=== PATIENT | male | born 1950 | race Caucasian/White ===

== ENCOUNTER 2016-07-24 21:19 | Emergency (ER) | payer BC ==
[~2016-07-24] VITALS: Ht 170.2 cm; Wt 104.9 kg
[~2016-07-24 21:19] MED LIST: ASPI81TA28 PO; ATOR10TA82 PO; METF-384 PO; METO50TA16 PO; ZNTT/150 PO
[2016-07-24 21:22] VITALS: TEMP 36.8; Ht 170.2 cm; Wt 104.9 kg
[2016-07-24] MEDS ORDERED: DOXYCYCLINE HYCLATE 100 MG CAP PO ONE (21:45)
--- NOTE | 2016-07-24 21:56 | EMERGENCY ROOM VISIT NOTE ---
ED Visit Note First contact with patient: 21:26 CHIEF COMPLAINT: Tick bite HISTORY OF PRESENT ILLNESS: This 65-year-old male patient presents to the emergency department ambulatory complaining of a tick bite to the right leg, just below the knee. He first noticed the tick approximately 2 hours ago and is unsure how long it was in place. He has attempted to remove the tick at home , and states that most of it came out but he feels there is still a small part left under his skin. They complain of 3/10 pain in the area of the tick bite. The patient denies any redness, swelling or drainage from the area. They deny any rashes, fevers or joint pain. REVIEW OF SYSTEMS: A review of systems was performed with positives and pertinent negatives listed in the history of present illness. All other systems were reviewed and are negative. ALLERGIES: No known drug allergies MEDICATIONS: See med list PMH: Hypertension, diabetes SOCIAL HISTORY: The patient lives locally with his family. Nonsmoker. PHYSICAL EXAM: VITALS: Vitals are noted on the nurse's note and reviewed by myself. Vital signs stable. GENERAL: This is a 65-year-old male, in no acute distress, nondiaphoretic, well- developed well-nourished. SKIN: There is a small area of erythema/ecchymosis over the medial aspect of the right lower leg, just distal to the knee. There is a small black foreign body centrally. There is no surrounding erythema or swelling. There are no rashes. EMERGENCY DEPARTMENT COURSE: The patient was seen and examined as above. The remaining tick parts were removed using forceps. Bacitracin and Band-Aid were applied. Lyme prophylaxis was indicated and the patient was given a one-time dose of 200 mg doxycycline. Conservative care measures were discussed with the patient. The patient was discharged home in good condition. DIAGNOSIS: Tick bite Problem List Medical Problems: (1) Coronary artery disease Status: Chronic (2) Diabetes Status: Chronic (3) Hypertension Status: Chronic Surgical Problems: (1) S/P CABG (coronary artery bypass graft) Status: Resolved Current/Historical Medications Scheduled Atorvastatin (Lipitor), 20 MG PO DAILY Lisinopril (Lisinopril), 5 MG PO DAILY Metformin HCl (Metformin HCl), 500 MG PO BID Metoprolol Tartrate (Lopressor) (Lopressor), 50 MG PO BID Timolol Maleate (Timolol Gfs 0.5% (Generic For Timoptic-Xe)), 1 DROP OPB BID Scheduled PRN Ranitidine (Zantac), 150 MG PO DAILY PRN for INDIGESTION Allergies Coded Allergies: No Known Allergies (Unverified , 09/16/12) Vital Signs Date Time Temp Pulse Resp B/P Pulse Ox O2 Delivery O2 Flow Rate FiO2 07/24/16 22:10 89 18 131/88 99 07/24/16 21:22 36.8 99 18 133/86 96 Room Air Medications Administered Medications (Trade) Dose Ordered Sig/Jimy Route Start Time Stop Time Status Last Admin Dose Admin Doxycycline Hyclate (Vibramycin Cap) 200 mg ONE ONCE PO 07/24/16 21:45 07/24/16 21:46 DC 07/24/16 21:54 200 MG Departure Information Impression Primary Impression: Tick bite Dispostion Home / Self-Care Condition GOOD Referrals Colton Joseph M.D. (PCP) Patient Instructions My [facility] Additional Instructions For pain control, you can use the following [id number] medicines (if >12 yo): - Regular strength (325mg/tab) Tylenol (acetaminophen) 2 tabs every 4-6 hours as needed. Do not exceed 12 tablets in a 24 hour period. Avoid taking more than 4 grams (4000 mg) of Tylenol per day. This includes any other sources of acetaminophen you may take on a regular basis. - Regular strength (200 mg/tab) Advil (ibuprofen) 1-2 tabs every 4-6 hours as needed. Do not exceed a dose of 3200 mg per day. Proper wound care is essential for adequate wound healing and infection prevention. You can shower and clean the wound with soap and water. Do not scour over the wound, pat dry with a towel. Do not submerse the wound (i.e. bathe or dish wash) until the wound has fully healed. You can use an antibiotic ointment with a dressing over the wound for the next 3-4 days. After this time you may leave the wound dry and open to the air. Follow-up with the primary care provider or return here for any target-like rashes, joint pain, fevers or other new/concerning symptoms.
[2016-07-24] MEDS ORDERED: GLC500 PO (22:08)
[2016-07-24] MEDS ORDERED: LSN5 PO (22:08)
[2016-07-24] MEDS ORDERED: ATOR-22 PO (22:08)
[2016-07-24] MEDS ORDERED: TMPXEOPS OPB (22:08)
[2016-07-24 22:10] VITALS: BP 131/88; PULSE 89; O2SAT 99
== END 2016-07-24 22:01 | disposition home or self-care (01) ==
LOC: C.EDB 21:19 → C.EDD 22:01
DX: S80.861A Insect bite (nonvenomous), right lower leg, initial encounter (principal); W57.XXXA Bitten or stung by nonvenomous insect and other nonvenomous arthropods, initial encounter; I25.10 Atherosclerotic heart disease of native coronary artery without angina pectoris; E11.9 Type 2 diabetes mellitus without complications; I10 Essential (primary) hypertension; Z95.1 Presence of aortocoronary bypass graft; Z79.84 Long term (current) use of oral hypoglycemic drugs; Z79.899 Other long term (current) drug therapy

== ENCOUNTER 2017-08-01 17:08 | Emergency (ER) | payer BC ==
[~2017-08-01] VITALS: Ht 170.2 cm; Wt 105.0 kg
[~2017-08-01 17:08] MED LIST changes: -ASPI81TA28 PO; +ATOR-22 PO; -ATOR10TA82 PO; +GLC500 PO; +LSN5 PO; -METF-384 PO; +RANI150T85 PO; +TMPXEOPS OPB; -ZNTT/150 PO
[2017-08-01 17:29] VITALS: TEMP 36.8; Ht 170.2 cm; Wt 105.0 kg
[2017-08-01] MEDS ORDERED: FENTANYL CITRATE INJ 50 MCG/1 ML 2 ML VIAL IV STA (17:56)
[2017-08-01] MEDS ORDERED: SODIUM CHLORIDE 0.9% 1000ML 1,000 ML IV STA (17:56)
[2017-08-01] MEDS ORDERED: PIOG1TAB23 PO (18:00)
[2017-08-01] MEDS ORDERED: CZR25 PO (18:00)
[2017-08-01 18:27] VITALS: O2SAT 97
[2017-08-01] MEDS ORDERED: OPTIRAY 320 IV PRN (18:30)
--- NOTE | 2017-08-01 18:35 | EMERGENCY ROOM VISIT NOTE ---
History Report prepared by Tyron: Nicole Deleon Under the Supervision of: Dr. Tee Daniel M.D. First contact with patient: 17:40 Chief Complaint: FALL Stated Complaint: FALL/ R LEG & BACK PAIN/SOB History of Present Illness The patient is a 66 year old male who presents to the Emergency Room with complaints of an episode of a fall occurring just prior to arrival. The patient reports he was was carrying shingles up a ladder when the ladder fell sideways and he fell off of it. He states he hit his feet on the ground first before he fell onto his back and rolled onto his ride. The patient reports right knee pain. He denies any hip pain, neck pain, back pain or shoulder pain. The patient does not believe he hit his head or lost consciousness. He also does not believe he is on any blood thinners. Source of History: patient Onset: just prior to arrival Position: other (generalized) Quality: other (fall) Timing: other (episode) Associated Symptoms: No LOC, No neck pain, No back pain Review of Systems See HPI for pertinent positives and negatives. A total of ten systems were reviewed and were otherwise negative. Past Medical & Surgical Medical Problems: (1) Coronary artery disease (2) Diabetes (3) Hypertension Surgical Problems: (1) S/P CABG (coronary artery bypass graft) Family History Patient reports no known family medical history. Social History Smoking Status: Never Smoker Alcohol Use: none Drug Use: none Marital Status: Housing Status: lives with significant other Occupation Status: unemployed Current/Historical Medications Scheduled Atorvastatin (Lipitor), 20 MG PO DAILY Lisinopril (Lisinopril), 5 MG PO DAILY Losartan Potassium (Losartan Potassium), 25 MG PO DAILY Metformin HCl (Metformin HCl), 500 MG PO BID Metoprolol Tartrate (Lopressor) (Lopressor), 50 MG PO BID Pioglitazone Hcl (Pioglitazone Hcl), 30 MG PO DAILY Timolol Maleate (Timolol Gfs 0.5% (Generic For Timoptic-Xe)), 1 DROP OPB BID Scheduled PRN Lidocaine (Lidocaine), 1 PATCH TD DAILY PRN for Pain Oxycodone Ir (Roxicodone Ir), 1-2 TAB PO Q4H PRN for Pain Ranitidine (Zantac), 150 MG PO DAILY PRN for INDIGESTION Allergies Coded Allergies: No Known Allergies (Unverified , 5//18) Physical Exam Vital Signs Date Time Temp Pulse Resp B/P (MAP) Pulse Ox O2 Delivery O2 Flow Rate FiO2 08/02/17 01:02 102 18 105/56 98 08/02/17 00:20 105 18 108/61 93 Room Air 08/01/17 23:19 100 08/01/17 22:46 100 20 123/77 97 Room Air 08/01/17 21:30 99 14 93 Room Air 08/01/17 21:00 101 18 130/83 96 Room Air 08/01/17 20:30 102 15 96 Room Air 08/01/17 20:05 90 15 125/60 97 Room Air 08/01/17 18:53 74 08/01/17 18:39 79 18 146/76 97 Room Air 08/01/17 18:27 97 Room Air 08/01/17 17:29 36.8 73 18 133/76 95 Room Air Physical Exam GENERAL: Awake, alert, uncomfortable-appearing, in no distress HENT: Normocephalic, atraumatic. Oropharynx unremarkable. Dry MM. EYES: Normal conjunctiva. Sclera non-icteric. NECK: Supple. No nuchal rigidity. FROM. No JVD. RESPIRATORY: Clear to auscultation. CARDIAC: Regular rate, normal rhythm. Extremities warm and well perfused. Pulses equal. ABDOMEN: Soft, non-distended. No tenderness to palpation. No rebound or guarding. No masses. RECTAL: Deferred. MUSCULOSKELETAL: Mild tenderness in mid T-spine laterally, no midline tenderness in CTL spine, no stepoffs. Pain with range of motion of right knee with questionable deformity and mild swelling. Distal pulses intact with triphasic pedal pulses. Chest examination reveals no tenderness. No joint edema. LOWER EXTREMITIES: Calves are equal size bilaterally and non-tender. No edema. No discoloration. NEURO: Normal sensorium. No sensory or motor deficits noted. SKIN: No rash or jaundice noted. Medical Decision & Procedures ER Provider Diagnostic Interpretation: Radiology results as stated below per my review and radiologist interpretation: R LOWER EXTREMITY WITHOUT FINDINGS: Electrotyper Helper topogram: Unremarkable. Redemonstration of the comminuted intra-articular fracture of the tibial plateau. Fracture planes violating both the medial and lateral articular surfaces of the tibial plateau. A prominent horizontal metaphyseal component is evidence, bilaterally both the medial and lateral cortex of the tibial metaphysis. There is severe depression in the lateral plateau with approximately 1 cm of Central cortical depression. No significant cortical step-off at the oblique sagittal fracture plane through the medial articular surface. The fibular head is also comminuted. The proximal tibiofibular articulation is disrupted. Another prominent fracture plane extends coronally and separates the posterior portion of the tibial plateau. There is slight apex anterior angulation of this fracture fragment with impaction distally and significant cortical step-off of nearly 1 cm (series 301 image 50). Knee joint effusion with a lipoma hemarthrosis. Suspected disruption of the insertion of the biceps femoris tendon and fibular collateral ligament. Suspected disruption of the popliteus tendon. Evaluation of soft tissues would be better assessed with MR. IMPRESSION: Comminuted Schatzker type fracture with significant cortical step-off and deformity is as detailed above. Violation of both the medial and lateral articular surfaces of the tibia. Severe posterior lateral corner disruption. Electronically signed by: Reji López M.D. ABD/PELVIS IV CONTRAST ONLY CLINICAL HISTORY: 66 years-old Male presenting with pain fall, fall from a height of 8 feet off a ladder. TECHNIQUE: Multidetector CT of the abdomen and pelvis was performed after the administration of intravenous contrast. IV contrast: 91 mL of Optiray 320. A dose lowering technique was used consistent with the principles of ALARA (as low as reasonably achievable). COMPARISON: None. CT DOSE (mGy.cm): The estimated cumulative dose is 4625.[address] scans. FINDINGS: Electrotyper Helper topogram: Median sternotomy wires. Lung bases: Minimal basilar opacities, likely atelectasis. Normal heart size. Coronary artery and aortic valve calcification. No pericardial or pleural effusion. Liver: Normal morphology. No liver lesion. Patent hepatic vasculature. Biliary: No intrahepatic or extrahepatic biliary ductal dilatation. Gallbladder contains gallstones. Pancreas: Normal. Spleen: Normal. Adrenal glands: Normal. Kidneys and ureters: Bilateral nephrolithiasis, punctate on the right and more prominent on the left measuring 8 mm. No hydronephrosis. An anteriorly oriented left renal pelvis. Normal renal parenchyma apart from a well-defined hypodensity in the right kidney, likely cyst. Ureters normal. Bladder: Circumferential bladder wall thickening. Pelvic organs: Prostate enlargement likely secondary to benign prostatic hyperplasia. Bowel: Normal appendix. No bowel obstruction. Peritoneal cavity: No free fluid or intraperitoneal gas. Lymph nodes: No enlarged lymph nodes in the abdomen or pelvis. Vasculature: Atherosclerosis of the normal caliber abdominal aorta. IVC patent. Abdominal wall: Bilateral gynecomastia. No focal infiltration to suggest contusion. Musculoskeletal: Degenerative changes of the spine. Degenerative changes of the sacroiliac joints. 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 No acute osseous injury. IMPRESSION: 1. No acute intra-abdominal injury. 2. Cholelithiasis. 3. Bilateral nephrolithiasis. 4. Chronic bladder outlet obstruction secondary to prostatomegaly. 5. Bilateral gynecomastia. Electronically signed by: Reji López M.D. CERVICAL SPINE W/O CLINICAL HISTORY: 66 years-old Male presenting with EVALUATE FOR TRAUMA/INJURY, fell 8 feet off a ladder. TECHNIQUE: Multidetector CT of the cervical spine was performed without the use of intravenous contrast. IV contrast: None. A dose lowering technique was used consistent with the principles of ALARA (as low as reasonably achievable). COMPARISON: None. CT DOSE (mGy.cm): The estimated cumulative dose is 4625.[address] scans. FINDINGS: Electrotyper Helper topogram: Median sternotomy wires. Normal cervical lordosis. Mild vertebral body height loss of C5. Remaining vertebral bodies demonstrate normal height and alignment. Intervertebral disc height loss at C5-6. Disc osteophyte complexes evident at C4-5 through C6-7. No acute fracture or acute subluxation. Degenerative or posttraumatic ossification within the nuchal ligament. No significant osseous spinal canal. Osseous neural foraminal narrowing evident on the right at C5-6. Skull base intact. Lung apices clear. Paraspinal soft tissues within normal limits allowing for noncontrast technique. IMPRESSION: 1. No acute osseous injury of the cervical spine. 2. Degenerative related height loss of C5. 3. Multilevel degenerative disease. Electronically signed by: Reji López M.D. CT (CHEST) THORAX WITH CLINICAL HISTORY: 66 years-old Male presenting with Trauma, fell 8 feet off a ladder. TECHNIQUE: Multidetector CT imaging of the chest was performed after the administration of intravenous contrast. IV contrast: 91 mL of Optiray 320. A dose lowering technique was used consistent with the principles of ALARA (as low as reasonably achievable). COMPARISON: None. CT DOSE (mGy.cm): The estimated cumulative dose is 4625.44. FINDINGS: Electrotyper Helper topogram: Median sternotomy wires. On soft tissue windows, normal thyroid. Bilateral gynecomastia. No axillary, supraclavicular, hilar, or mediastinal lymphadenopathy. Atherosclerosis of the aorta. Mild multichamber enlargement of the heart. Coronary artery calcification. Postsurgical changes of coronary artery bypass grafting. No pericardial or pleural effusion. Cholelithiasis. On lung windows, minimal dependent changes likely atelectasis. Mosaic attenuation suggest small airways disease. No other focal nodule or infiltrate. Airways patent. On bone windows, degenerative changes of the spine. IMPRESSION: 1. No acute intrathoracic injury. 2. Postsurgical changes of coronary artery bypass grafting. 3. Mild cardiomegaly. 4. Cholelithiasis. Electronically signed by: Reji López M.D. HEAD WITHOUT CONTRAST (CT) CLINICAL HISTORY: 66 years-old Male presenting with EVALUATE FOR TRAUMA/INJURY fall from a height of 8 feet from a ladder. TECHNIQUE: Multidetector CT imaging of the head was performed without the use of intravenous contrast. IV contrast: None. A dose lowering technique was used consistent with the principles of ALARA (as low as reasonably achievable). COMPARISON: None. CT DOSE (mGy.cm): The estimated cumulative dose is 4625.44 mGy.cm. FINDINGS: Electrotyper Helper topogram: Unremarkable. Ventricles and sulci normal in size. Brain parenchyma normal in appearance with preserved newell-white differentiation. No mass effect or midline shift. No hemorrhage or acute territorial infarct. No extra-axial fluid collection. Paranasal sinuses and mastoid air cells clear. Calvarium intact. IMPRESSION: 1. No acute intracranial abnormality. Electronically signed by: Reji López M.D. LUMBAR SPINE WITHOUT CLINICAL HISTORY: 66 years-old Male presenting with pain fall. TECHNIQUE: Multidetector CT of the lumbar spine was performed without the use of intravenous contrast. IV contrast: None. A dose lowering technique was used consistent with the principles of ALARA (as low as reasonably achievable). COMPARISON: Plain radiographs of the lumbar spine from 05/22/2015. CT DOSE (mGy.cm): The estimated cumulative dose is 4625.44. FINDINGS: Electrotyper Helper topogram: Median sternotomy wires. Normal lumbar lordosis. Vertebral bodies maintain normal height and alignment. Intervertebral disc heights preserved. Anterior osteophytosis noted most pronounced at L4-5. Disc bulge suggested at several levels but most prominently at L5-S1. Facet arthropathy also noted in the lower lumbar spine. No significant osseous spinal canal and neural foraminal narrowing. No acute fracture or acute subluxation. Acute fractures of the right transverse processes of L2-L3. Visualized portion of the sacrum intact. Paraspinal musculature normal. Remaining soft tissues remarkable for atherosclerosis and bilateral nephrolithiasis. IMPRESSION: 1. Acute fractures of the right transverse processes of L2 and L3. Notably, this is different than reported on the CT abdomen and pelvis. Please rely on this report for findings in the lumbar spine. 2. No other acute osseous injury. 3. Multilevel degenerative changes. Electronically signed by: Reji López M.D. THORACIC SPINE WITHOUT CLINICAL HISTORY: 66 years-old Male presenting with pain fall, fall from ladder from 8 feet, mid back pain. TECHNIQUE: Multidetector CT of the thoracic spine was performed 1 IV contrast: None. A dose lowering technique was used consistent with the principles of ALARA (as low as reasonably achievable). COMPARISON: None. CT DOSE (mGy.cm): The estimated cumulative dose is 4625.[address] scans. FINDINGS: Electrotyper Helper topogram: Unremarkable. Normal thoracic kyphosis. Vertebral bodies maintain normal height and alignment. Intervertebral disc heights maintained. Flowing anterior osteophytosis at every level. No osseous neural foraminal or spinal canal narrowing. No compression deformity. However, there is an apparent breakage of anterior osteophytes at the superior endplate of T9. A fracture plane may be present in the anterior aspect of the T9 vertebral body which allows the superior endplate. No fracture plane is identified in the posterior aspect of the vertebral body or posterior elements. No subluxation. Normal alignment of the facet joints. Paraspinal musculature within normal limits. Atelectasis noted in the lungs. IMPRESSION: Findings consistent with acute fracture of the T9 vertebral body most evident by fracture of the anterior osteophytosis at the level of the superior endplate of T9. No extension of the fracture into the posterior aspect of the T9 vertebral body or the posterior elements. No subluxation. Electronically signed by: Reji López M.D. R ANKLE MIN 3 VIEWS ROUTINE CLINICAL HISTORY: 66 years-old Male presenting with pain fall from ladder. TECHNIQUE: Frontal, oblique, and lateral views of the right ankle were obtained. COMPARISON: None. FINDINGS: Ankle mortise intact. Prominent enthesophyte at the insertion of the Achilles tendon and origin of the plantar fascia. No acute fracture or malalignment. No advanced degenerative change. No radiographic soft tissue abnormality. IMPRESSION: No acute osseous injury. Electronically signed by: Reji López M.D. CHEST ONE VIEW PORTABLE CLINICAL HISTORY: 66 years-old Male presenting with EVALUATE FOR TRAUMA/INJURY. TECHNIQUE: Portable supine AP view of the chest was obtained. COMPARISON: 02/04/2017. FINDINGS: Median sternotomy wires. Atherosclerosis of aortic arch. Cardiac silhouette mildly enlarged. Pulmonary vascular prominence. Mildly low lung volumes. No focal opacity. No large effusion or pneumothorax. Osseous structures normal. Upper abdomen normal. IMPRESSION: 1. Cardiomegaly with volume overload. The appearance may be due to supine technique. No heath pulmonary edema. 2. Mildly low lung volumes. Electronically signed by: Reji López M.D. R FEMUR 2 VIEWS ROUTINE CLINICAL HISTORY: 66 years-old Male presenting with pain fall from ladder. TECHNIQUE: Frontal and lateral views of the right femur were obtained. COMPARISON: None. FINDINGS: Partially visualized tibial plateau fracture. The right hip joint is congruent. The right femur is intact. No acute fracture or malalignment. No advanced degenerative change. Knee joint effusion evident. Visualized portion of the bony pelvis intact. IMPRESSION: 1. No acute osseous injury of the right femur. 2. Tibial plateau fracture. 3. Knee joint effusion. Electronically signed by: Ankit Severino FOOT MIN 3 VIEWS ROUTINE CLINICAL HISTORY: 66 years-old Male presenting with pain fall from ladder. TECHNIQUE: Frontal, oblique, and lateral views of the right foot were obtained. COMPARISON: None. FINDINGS: Mild osteophytosis at the first metatarsophalangeal joint with preservation of joint space. Enthesophyte at the insertion of the Achilles tendon and origin of the plantar fascia. No acute fracture or malalignment. No advanced degenerative change. No radiographic soft tissue abnormality. IMPRESSION: No acute osseous injury. Electronically signed by: Ankit Severino KNEE 1 OR 2 VIEWS ROUTINE CLINICAL HISTORY: 66 years-old Male presenting with pain fall from ladder. TECHNIQUE: Frontal and lateral views the right knee were obtained. COMPARISON: None. FINDINGS: Comminuted mildly depressed fracture of the lateral tibial plateau that extends to the lateral and medial cortices of the tibial metaphysis. There is resultant widening of the lateral joint space of the knee secondary to impaction. Significant cortical step-off. Minimal apex anterior angulation of the metaphyseal fracture plane. Significant joint effusion. Enthesophytes at the insertion of the quadriceps tendon and origin and insertion of the patellar tendon. No advanced degenerative changes. IMPRESSION: 1. Comminuted Schatzker type fracture pattern with significant depression and cortical up off of the lateral plateau. 2. Joint effusion. Electronically signed by: Reji López M.D. R TIBIA/FIBULA 2 VIEWS ROUTINE FINDINGS: The knee is incompletely included within the [id number]. Please see separately dictated radiographs of the knee. The remainder of the tibia and fibula are normal. No acute fracture or malalignment. No advanced degenerative change. No radiographic soft tissue abnormality. IMPRESSION: No acute osseous injury. Please see separately dictated radiographs of the right knee. Electronically signed by: Reji López M.D. Laboratory Results 08/01/17 18:47 Red Blood Count 4.84, Mean Corpuscular Volume 90.5, Mean Corpuscular Hemoglobin 30.8, Mean Corpuscular Hemoglobin Concent 34.0, Mean Platelet Volume 10.1, Neutrophils (%) (Auto) 76.3, Lymphocytes (%) (Auto) 17.2, Monocytes (%) (Auto) 5.3, Eosinophils (%) (Auto) 0.5, Basophils (%) (Auto) 0.3, Neutrophils # (Auto) 8.81, Lymphocytes # (Auto) 1.98, Monocytes # (Auto) 0.61, Eosinophils # (Auto) 0.06, Basophils # (Auto) 0.03 08/01/17 18:47 Test 08/01/17 18:47 08/01/17 18:56 08/01/17 20:55 White Blood Count 11.54 K/uL (4.8-10.8) Red Blood Count 4.84 M/uL (4.7-6.1) Hemoglobin 14.9 g/dL (14.0-18.0) Hematocrit 43.8 % (42-52) Mean Corpuscular Volume 90.5 fL (80-100) Mean Corpuscular Hemoglobin 30.8 pg (25-34) Mean Corpuscular Hemoglobin Concent 34.0 g/dl (32-36) Platelet Count 188 K/uL (130-400) Mean Platelet Volume 10.1 fL (7.4-10.4) Neutrophils (%) (Auto) 76.3 % Lymphocytes (%) (Auto) 17.2 % Monocytes (%) (Auto) 5.3 % Eosinophils (%) (Auto) 0.5 % Basophils (%) (Auto) 0.3 % Neutrophils # (Auto) 8.81 K/uL (1.4-6.5) Lymphocytes # (Auto) 1.98 K/uL (1.2-3.4) Monocytes # (Auto) 0.61 K/uL (0.11-0.59) Eosinophils # (Auto) 0.06 K/uL (0-0.5) Basophils # (Auto) 0.03 K/uL (0-0.2) RDW Standard Deviation 43.2 fL (36.4-46.3) RDW Coefficient of Variation 13.1 % (11.5-14.5) Immature Granulocyte % (Auto) 0.4 % Immature Granulocyte # (Auto) 0.05 K/uL (0.00-0.02) Prothrombin Time 10.9 SECONDS (9.0-12.0) Prothromb Time International Ratio 1.0 (0.9-1.1) Est Creatinine Clear Calc Drug Dose 73.6 ml/min Estimated GFR () 77.2 Estimated GFR (Non- 66.6 BUN/Creatinine Ratio 17.6 (10-20) Calcium Level 8.5 mg/dl (8.5-10.1) Total Bilirubin 0.9 mg/dl (0.2-1) Direct Bilirubin 0.2 mg/dl (0-0.2) Aspartate Amino Transf (AST/SGOT) 29 U/L (15-37) Alanine Aminotransferase (ALT/SGPT) 32 U/L (12-78) Alkaline Phosphatase 56 U/L (45-117) Total Creatine Kinase 226 U/L (39-308) Troponin I < 0.015 ng/ml (0-0.045) Total Protein 7.5 gm/dl (6.4-8.2) Albumin 3.8 gm/dl (3.4-5.0) Lipase 214 U/L (73-393) Ethyl Alcohol mg/dL < 3.0 mg/dl (0-3) Bedside Hemoglobin 15.0 g/dl (14.0-18.0) Bedside Hematocrit 44 % (42-52) Bedside Sodium 142 mEq/L (135-144) Bedside Potassium 4.3 mEq/L (3.3-5.0) Bedside Chloride 104 mEq/L (101-112) Bedside Total CO2 27 mEq/l (24-31) Anion Gap 17.0 mmol/L (16-25) Bedside Blood Urea Nitrogen 22 mg/dl (7-18) Bedside Creatinine 1.2 mg/dl (0.6-1.3) Bedside Glucose (other) 135 mg/dl (70-99) Bedside Ionized Calcium (Penny) 1.11 mmol/l (1.12-1.32) Urine Color YELLOW Urine Appearance CLEAR (CLEAR) Urine pH 5.0 (4.5-7.5) Urine Specific [place] > 1.045 (1.000-1.030) Urine Protein NEG (NEG) Urine Glucose (UA) NEG (NEG) Urine Ketones TRACE (NEG) Urine Occult Blood 3+ (NEG) Urine Nitrite NEG (NEG) Urine Bilirubin NEG (NEG) Urine Urobilinogen NEG (NEG) Urine Leukocyte Esterase NEG (NEG) Urine WBC (Auto) 1-5 /hpf (0-5) Urine RBC (Auto) 10-30 /hpf (0-4) Urine Hyaline Casts (Auto) 1-5 /lpf (0-5) Urine Epithelial Cells (Auto) 0-5 /lpf (0-5) Urine Bacteria (Auto) NEG (NEG) Laboratory results reviewed by me Medications Administered Medications (Trade) Dose Ordered Sig/Jimy Route Start Time Stop Time Status Last Admin Dose Admin Sodium Chloride 1,000 ml @ 999 mls/hr Q1H1M STAT IV 08/01/17 17:56 08/01/17 18:56 DC 08/01/17 19:21 999 MLS/HR Fentanyl Citrate (Fentanyl Inj) 50 mcg NOW STAT IV 08/01/17 17:56 08/01/17 18:00 DC 08/01/17 20:04 50 MCG Morphine Sulfate (MoRPHine SULFATE INJ) 8 mg NOW STAT IV 08/01/17 21:03 08/01/17 21:04 DC 08/01/17 21:11 8 MG Sodium Chloride 500 ml @ 999 mls/hr Q31M STAT IV 08/02/17 00:07 08/02/17 00:37 DC 08/02/17 00:10 999 MLS/HR Ondansetron HCl (Zofran Inj) 4 mg NOW STAT IV 08/02/17 00:07 08/02/17 00:08 DC 08/02/17 00:20 4 MG ECG Per My Interpretation Indication: other (trauma) Rate (beats per minute): 70 Rhythm: normal sinus Findings: RBBB, no acute ischemic change, left axis deviation ED Course 1741: The patient was evaluated in room B3A. A complete history and physical exam was performed. 2099: I discussed the patient with Dr. Gutiérrez-Orthopedics - He agrees with treatment plan and will follow up with the patient on Thursday. He recommends a knee immobilizer. 2131: I reevaluated the patient. Discussed results and discharge instructions: He verbalized understanding and agreement. The patient is ready for discharge. Medical Decision I reviewed the patient's past medical history, medications, and the nursing notes as described above. Differential diagnosis: Etiologies such as fracture, dislocation, intra-abdominal, pneumothorax, intrathoracic , intracranial, neurologic, as well as other traumatic pathologies were entertained. The patient is a 66-year-old gentleman who presents emergency department with right knee pain after having a fall off of an 8 foot ladder landing on his feet and then onto his back per hpi. Denies any head strike, LOC. On arrival the patient is uncomfortable but no acute distress, afebrile stable vital signs. On exam the patient has mild left paraspinal thoracic pain and otherwise no CT L spine tenderness or step-offs. Mild tenderness of the right knee with mild swelling and limited range of motion secondary to pain. He has full range of motion at the hips bilaterally without discomfort. Distal PMS intact with triphasic pedal pulses on Doppler. Labs unremarkable. CT of head, chest, abdomen/pelvis, CT L-spine demonstrate an acute T9 vertebral body fracture at the level of the superior endplate with no involvement of posterior elements. Additional with right L2 and L3 transverse process fractures. Otherwise, plain films demonstrate "Comminuted Schatzker type fracture pattern with significant depression and cortical up off of the lateral plateau." Case was discussed with Dr. Gutiérrez who agrees with plan for knee immobilization and CT for surgical planning. The patient will follow-up on Thursday for further evaluation and surgical coordination. Of note, CT completed further characterizing the patient's tibial plateau fracture, knee immobilizer placed, however when attempted to walk the patient did experience near syncope likely related to the patient's morphine administration in the setting of decreased oral intake. Patient was given IVF bolus and zofran with resolution of sx. Findings and plan for follow-up reviewed with patient. Patient agreeable and d/c'd per discharge instructions. Medication Reconcilliation Current Medication List: was personally reviewed by me Blood Pressure Screening Patient's blood pressure: Normal blood pressure Consults Time Called: 2037 Consulting Physician: Dr. Gutiérrez-Orthopedics Returned Call: [phone] I discussed the patient with Dr. Gutiérrez-Orthopedics - He agrees with treatment plan and will follow up with the patient on Thursday. He recommends a knee immobilizer. Impression Primary Impression: Tibial plateau fracture, right Additional Impressions: T9 vertebral fracture Multiple transverse process fractures Scribe Attestation The scribe's documentation has been prepared under my direction and personally reviewed by me in its entirety. I confirm that the note above accurately reflects all work, treatment, procedures, and medical decision making performed by me. Departure Information Dispostion Home / Self-Care Prescriptions Lidocaine (Lidocaine) 1 Patch Tdsy 1 PATCH TD DAILY Y for Pain, #10 PATCH Prov: Tee Daniel M.D. 08/01/17 Oxycodone Ir (Roxicodone Ir) 5 Mg Tab 1-2 TAB PO Q4H Y for Pain, #15 TAB Prov: Tee Daniel M.D. 08/01/17 Referrals Colton Joseph M.D. (PCP) Fletcher Gutiérrez D.O. Michael Schrader, DO Forms HOME CARE DOCUMENTATION FORM, IMPORTANT VISIT INFORMATION Patient Instructions ED Fx Comp Vertebral, ED Fx Transverse Process, ED Immobilizer Knee, My [facility], Tibial Plafond Fracture Additional Instructions Please follow up with your orthopedics, Dr. Gutiérrez, on Thursday for re-evaluation and surgical planning for your knee fracture. You should also follow up with Dr. Schrader, orthopedic-spine, for re-evaluation regarding your vertebral fractures. You are found to have a right knee fracture will require surgery as well as minor fractures of her spine including your T9 vertebral body and the right transverse process fractures of L2 and L3. Otherwise, your exam, lab results, and CT scans did not show signs of an emergent condition at this time. Use your knee immobilizer and remain nonweightbearing until reevaluated. Acetaminophen for pain and fevers as needed. Oxycodone for breakthrough pain as directed. Lidoderm patch for additional pain relief as needed. Drink plenty of fluids to ensure hydration. Return to the emergency department for worsening symptoms as described in the accompanying instructions. Problem Qualifiers
[2017-08-01 19:10] LABS: ISTAT CREATININE 1.2 mg/dl (0.6-1.3); ISTAT IONIZED CALCIUM 1.11 mmol/l (1.12-1.32); ISTAT POTASSIUM 4.3 mEq/L (3.3-5.0)
[2017-08-01 19:11] LABS: BASO % 0.3 %; BASO ABS # 0.03 K/uL (0-0.2); EOS % 0.5 %; EOS ABS # 0.06 K/uL (0-0.5); HEMATOCRIT 43.8 % (42-52); HEMOGLOBIN 14.9 g/dL (14.0-18.0); IG# 0.05 K/uL (0.00-0.02); LYMPH % 17.2 %; LYMPH ABS # 1.98 K/uL (1.2-3.4); MEAN CELL VOLUME 90.5 fL (80-100); MEAN CORPUSCULAR HEMOGLOBIN 30.8 pg (25-34); MEAN PLATELET VOLUME 10.1 fL (7.4-10.4); MONO % 5.3 %; MONO ABS # 0.61 K/uL (0.11-0.59); NEUT % 76.3 %; NEUT ABS # 8.81 K/uL (1.4-6.5); PLATELET COUNT 188 K/uL (130-400); RED CELL DISTRIBUTION WIDTH CV 13.1 % (11.5-14.5); RED CELL DISTRIBUTION WIDTH SD 43.2 fL (36.4-46.3); WHITE BLOOD COUNT 11.54 K/uL (4.8-10.8)
[2017-08-01 19:28] LABS: ALBUMIN 3.8 gm/dl (3.4-5.0); ALT/SGPT 32 U/L (12-78); AST/SGOT 29 U/L (15-37); BLOOD UREA NITROGEN 20 mg/dl (7-18); CALCIUM 8.5 mg/dl (8.5-10.1); CARBON DIOXIDE 28 mmol/L (21-32); CREATININE 1.14 mg/dl (0.60-1.40); GLUCOSE 127 mg/dl (70-99); LIPASE 214 U/L (73-393); POTASSIUM 4.3 mmol/L (3.5-5.1); SODIUM 140 mmol/L (136-145)
--- NOTE | 2017-08-01 19:29 | DIAGNOSTIC IMAGING REPORT ---
HEAD WITHOUT CONTRAST (CT) CLINICAL HISTORY: 66 years-old Male presenting with EVALUATE FOR TRAUMA/INJURY fall from a height of 8 feet from a ladder. TECHNIQUE: Multidetector CT imaging of the head was performed without the use of intravenous contrast. IV contrast: None. A dose lowering technique was used consistent with the principles of ALARA (as low as reasonably achievable). COMPARISON: None. CT DOSE (mGy.cm): The estimated cumulative dose is 4625.44 mGy.cm. FINDINGS: Lead Shipper topogram: Unremarkable. Ventricles and sulci normal in size. Brain parenchyma normal in appearance with preserved newell-white differentiation. No mass effect or midline shift. No hemorrhage or acute territorial infarct. No extra-axial fluid collection. Paranasal sinuses and mastoid air cells clear. Calvarium intact. IMPRESSION: 1. No acute intracranial abnormality. Electronically signed by: Reji López M.D. 08/01/2017 7:28 PM Dictated Date/Time: 08/01/2017 7:26 PM
[2017-08-01 19:33] LABS: ALKALINE PHOSPHATASE 56 U/L (45-117); TOTAL PROTEIN 7.5 gm/dl (6.4-8.2)
--- NOTE | 2017-08-01 19:39 | DIAGNOSTIC IMAGING REPORT ---
CERVICAL SPINE W/O CLINICAL HISTORY: 66 years-old Male presenting with EVALUATE FOR TRAUMA/INJURY, fell 8 feet off a ladder. TECHNIQUE: Multidetector CT of the cervical spine was performed without the use of intravenous contrast. IV contrast: None. A dose lowering technique was used consistent with the principles of ALARA (as low as reasonably achievable). COMPARISON: None. CT DOSE (mGy.cm): The estimated cumulative dose is 4625.[address] scans. FINDINGS: E D Tech topogram: Median sternotomy wires. Normal cervical lordosis. Mild vertebral body height loss of C5. Remaining vertebral bodies demonstrate normal height and alignment. Intervertebral disc height loss at C5-6. Disc osteophyte complexes evident at C4-5 through C6-7. No acute fracture or acute subluxation. Degenerative or posttraumatic ossification within the nuchal ligament. No significant osseous spinal canal. Osseous neural foraminal narrowing evident on the right at C5-6. Skull base intact. Lung apices clear. Paraspinal soft tissues within normal limits allowing for noncontrast technique. IMPRESSION: 1. No acute osseous injury of the cervical spine. 2. Degenerative related height loss of C5. 3. Multilevel degenerative disease. Electronically signed by: Reji López M.D. 08/01/2017 7:38 PM Dictated Date/Time: 08/01/2017 7:34 PM
--- NOTE | 2017-08-01 19:57 | DIAGNOSTIC IMAGING REPORT ---
CT (CHEST) THORAX WITH CLINICAL HISTORY: 66 years-old Male presenting with Trauma, fell 8 feet off a ladder. TECHNIQUE: Multidetector CT imaging of the chest was performed after the administration of intravenous contrast. IV contrast: 91 mL of Optiray 320. A dose lowering technique was used consistent with the principles of ALARA (as low as reasonably achievable). COMPARISON: None. CT DOSE (mGy.cm): The estimated cumulative dose is 4625.44. FINDINGS: Route Service Representative topogram: Median sternotomy wires. On soft tissue windows, normal thyroid. Bilateral gynecomastia. No axillary, supraclavicular, hilar, or mediastinal lymphadenopathy. Atherosclerosis of the aorta. Mild multichamber enlargement of the heart. Coronary artery calcification. Postsurgical changes of coronary artery bypass grafting. No pericardial or pleural effusion. Cholelithiasis. On lung windows, minimal dependent changes likely atelectasis. Mosaic attenuation suggest small airways disease. No other focal nodule or infiltrate. Airways patent. On bone windows, degenerative changes of the spine. IMPRESSION: 1. No acute intrathoracic injury. 2. Postsurgical changes of coronary artery bypass grafting. 3. Mild cardiomegaly. 4. Cholelithiasis. Electronically signed by: Reji López M.D. 08/01/2017 7:56 PM Dictated Date/Time: 08/01/2017 7:51 PM
[2017-08-01] MEDS ORDERED: FENTANYL CITRATE INJ 50 MCG/1 ML 2 ML VIAL ONE (20:01)
--- NOTE | 2017-08-01 20:03 | DIAGNOSTIC IMAGING REPORT ---
ABD/PELVIS IV CONTRAST ONLY CLINICAL HISTORY: 66 years-old Male presenting with pain fall, fall from a height of 8 feet off a ladder. TECHNIQUE: Multidetector CT of the abdomen and pelvis was performed after the administration of intravenous contrast. IV contrast: 91 mL of Optiray 320. A dose lowering technique was used consistent with the principles of ALARA (as low as reasonably achievable). COMPARISON: None. CT DOSE (mGy.cm): The estimated cumulative dose is 4625.[address] scans. FINDINGS: Credit Resolution Representative topogram: Median sternotomy wires. Lung bases: Minimal basilar opacities, likely atelectasis. Normal heart size. Coronary artery and aortic valve calcification. No pericardial or pleural effusion. Liver: Normal morphology. No liver lesion. Patent hepatic vasculature. Biliary: No intrahepatic or extrahepatic biliary ductal dilatation. Gallbladder contains gallstones. Pancreas: Normal. Spleen: Normal. Adrenal glands: Normal. Kidneys and ureters: Bilateral nephrolithiasis, punctate on the right and more prominent on the left measuring 8 mm. No hydronephrosis. An anteriorly oriented left renal pelvis. Normal renal parenchyma apart from a well-defined hypodensity in the right kidney, likely cyst. Ureters normal. Bladder: Circumferential bladder wall thickening. Pelvic organs: Prostate enlargement likely secondary to benign prostatic hyperplasia. Bowel: Normal appendix. No bowel obstruction. Peritoneal cavity: No free fluid or intraperitoneal gas. Lymph nodes: No enlarged lymph nodes in the abdomen or pelvis. Vasculature: Atherosclerosis of the normal caliber abdominal aorta. IVC patent. Abdominal wall: Bilateral gynecomastia. No focal infiltration to suggest contusion. Musculoskeletal: Degenerative changes of the spine. Degenerative changes of the sacroiliac joints. 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 No acute osseous injury. IMPRESSION: 1. No acute intra-abdominal injury. 2. Cholelithiasis. 3. Bilateral nephrolithiasis. 4. Chronic bladder outlet obstruction secondary to prostatomegaly. 5. Bilateral gynecomastia. Electronically signed by: Reji López M.D. 08/01/2017 8:02 PM Dictated Date/Time: 08/01/2017 7:56 PM
--- NOTE | 2017-08-01 20:06 | DIAGNOSTIC IMAGING REPORT ---
LUMBAR SPINE WITHOUT CLINICAL HISTORY: 66 years-old Male presenting with pain fall. TECHNIQUE: Multidetector CT of the lumbar spine was performed without the use of intravenous contrast. IV contrast: None. A dose lowering technique was used consistent with the principles of ALARA (as low as reasonably achievable). COMPARISON: Plain radiographs of the lumbar spine from 05/22/2015. CT DOSE (mGy.cm): The estimated cumulative dose is 4625.44. FINDINGS: Customs Brokerage Manager topogram: Median sternotomy wires. Normal lumbar lordosis. Vertebral bodies maintain normal height and alignment. Intervertebral disc heights preserved. Anterior osteophytosis noted most pronounced at L4-5. Disc bulge suggested at several levels but most prominently at L5-S1. Facet arthropathy also noted in the lower lumbar spine. No significant osseous spinal canal and neural foraminal narrowing. No acute fracture or acute subluxation. Acute fractures of the right transverse processes of L2-L3. Visualized portion of the sacrum intact. Paraspinal musculature normal. Remaining soft tissues remarkable for atherosclerosis and bilateral nephrolithiasis. IMPRESSION: 1. Acute fractures of the right transverse processes of L2 and L3. Notably, this is different than reported on the CT abdomen and pelvis. Please rely on this report for findings in the lumbar spine. 2. No other acute osseous injury. 3. Multilevel degenerative changes. Electronically signed by: Reji López M.D. 08/01/2017 8:05 PM Dictated Date/Time: 08/01/2017 8:02 PM
--- NOTE | 2017-08-01 20:10 | DIAGNOSTIC IMAGING REPORT ---
THORACIC SPINE WITHOUT CLINICAL HISTORY: 66 years-old Male presenting with pain fall, fall from ladder from 8 feet, mid back pain. TECHNIQUE: Multidetector CT of the thoracic spine was performed 1 IV contrast: None. A dose lowering technique was used consistent with the principles of ALARA (as low as reasonably achievable). COMPARISON: None. CT DOSE (mGy.cm): The estimated cumulative dose is 4625.[address] scans. FINDINGS: Senior Reservoir Engineer topogram: Unremarkable. Normal thoracic kyphosis. Vertebral bodies maintain normal height and alignment. Intervertebral disc heights maintained. Flowing anterior osteophytosis at every level. No osseous neural foraminal or spinal canal narrowing. No compression deformity. However, there is an apparent breakage of anterior osteophytes at the superior endplate of T9. A fracture plane may be present in the anterior aspect of the T9 vertebral body which allows the superior endplate. No fracture plane is identified in the posterior aspect of the vertebral body or posterior elements. No subluxation. Normal alignment of the facet joints. Paraspinal musculature within normal limits. Atelectasis noted in the lungs. IMPRESSION: Findings consistent with acute fracture of the T9 vertebral body most evident by fracture of the anterior osteophytosis at the level of the superior endplate of T9. No extension of the fracture into the posterior aspect of the T9 vertebral body or the posterior elements. No subluxation. Electronically signed by: Reji López M.D. 08/01/2017 8:09 PM Dictated Date/Time: 08/01/2017 8:05 PM
--- NOTE | 2017-08-01 20:31 | DIAGNOSTIC IMAGING REPORT ---
CHEST ONE VIEW PORTABLE CLINICAL HISTORY: 66 years-old Male presenting with EVALUATE FOR TRAUMA/INJURY. TECHNIQUE: Portable supine AP view of the chest was obtained. COMPARISON: 02/04/2017. FINDINGS: Median sternotomy wires. Atherosclerosis of aortic arch. Cardiac silhouette mildly enlarged. Pulmonary vascular prominence. Mildly low lung volumes. No focal opacity. No large effusion or pneumothorax. Osseous structures normal. Upper abdomen normal. IMPRESSION: 1. Cardiomegaly with volume overload. The appearance may be due to supine technique. No heath pulmonary edema. 2. Mildly low lung volumes. Electronically signed by: Reji López M.D. 08/01/2017 8:29 PM Dictated Date/Time: 08/01/2017 8:28 PM
--- NOTE | 2017-08-01 20:32 | DIAGNOSTIC IMAGING REPORT ---
R ANKLE MIN 3 VIEWS ROUTINE CLINICAL HISTORY: 66 years-old Male presenting with pain fall from ladder. TECHNIQUE: Frontal, oblique, and lateral views of the right ankle were obtained. COMPARISON: None. FINDINGS: Ankle mortise intact. Prominent enthesophyte at the insertion of the Achilles tendon and origin of the plantar fascia. No acute fracture or malalignment. No advanced degenerative change. No radiographic soft tissue abnormality. IMPRESSION: No acute osseous injury. Electronically signed by: Reji López M.D. 08/01/2017 8:30 PM Dictated Date/Time: 08/01/2017 8:29 PM
--- NOTE | 2017-08-01 20:34 | DIAGNOSTIC IMAGING REPORT ---
R FOOT MIN 3 VIEWS ROUTINE CLINICAL HISTORY: 66 years-old Male presenting with pain fall from ladder. TECHNIQUE: Frontal, oblique, and lateral views of the right foot were obtained. COMPARISON: None. FINDINGS: Mild osteophytosis at the first metatarsophalangeal joint with preservation of joint space. Enthesophyte at the insertion of the Achilles tendon and origin of the plantar fascia. No acute fracture or malalignment. No advanced degenerative change. No radiographic soft tissue abnormality. IMPRESSION: No acute osseous injury. Electronically signed by: Reji López M.D. 08/01/2017 8:32 PM Dictated Date/Time: 08/01/2017 8:31 PM
--- NOTE | 2017-08-01 20:35 | DIAGNOSTIC IMAGING REPORT ---
R TIBIA/FIBULA 2 VIEWS ROUTINE CLINICAL HISTORY: 66 years-old Male presenting with pain fall from ladder. TECHNIQUE: Frontal and lateral views of the right lower leg were obtained. COMPARISON: None. FINDINGS: The knee is incompletely included within the [id number]. Please see separately dictated radiographs of the knee. The remainder of the tibia and fibula are normal. No acute fracture or malalignment. No advanced degenerative change. No radiographic soft tissue abnormality. IMPRESSION: No acute osseous injury. Please see separately dictated radiographs of the right knee. Electronically signed by: Reji López M.D. 08/01/2017 8:33 PM Dictated Date/Time: 08/01/2017 8:32 PM
--- NOTE | 2017-08-01 20:37 | DIAGNOSTIC IMAGING REPORT ---
R KNEE 1 OR 2 VIEWS ROUTINE CLINICAL HISTORY: 66 years-old Male presenting with pain fall from ladder. TECHNIQUE: Frontal and lateral views the right knee were obtained. COMPARISON: None. FINDINGS: Comminuted mildly depressed fracture of the lateral tibial plateau that extends to the lateral and medial cortices of the tibial metaphysis. There is resultant widening of the lateral joint space of the knee secondary to impaction. Significant cortical step-off. Minimal apex anterior angulation of the metaphyseal fracture plane. Significant joint effusion. Enthesophytes at the insertion of the quadriceps tendon and origin and insertion of the patellar tendon. No advanced degenerative changes. IMPRESSION: 1. Comminuted Schatzker type fracture pattern with significant depression and cortical up off of the lateral plateau. 2. Joint effusion. Electronically signed by: Reji López M.D. 08/01/2017 8:36 PM Dictated Date/Time: 08/01/2017 8:33 PM
--- NOTE | 2017-08-01 20:38 | DIAGNOSTIC IMAGING REPORT ---
R FEMUR 2 VIEWS ROUTINE CLINICAL HISTORY: 66 years-old Male presenting with pain fall from ladder. TECHNIQUE: Frontal and lateral views of the right femur were obtained. COMPARISON: None. FINDINGS: Partially visualized tibial plateau fracture. The right hip joint is congruent. The right femur is intact. No acute fracture or malalignment. No advanced degenerative change. Knee joint effusion evident. Visualized portion of the bony pelvis intact. IMPRESSION: 1. No acute osseous injury of the right femur. 2. Tibial plateau fracture. 3. Knee joint effusion. Electronically signed by: Reji López M.D. 08/01/2017 8:37 PM Dictated Date/Time: 08/01/2017 8:36 PM
[2017-08-01] MEDS ORDERED: MoRPHine SULFATE 10 MG/ML CARP/VIAL IV STA (21:03)
--- NOTE | 2017-08-01 22:42 | DIAGNOSTIC IMAGING REPORT ---
R LOWER EXTREMITY WITHOUT CLINICAL HISTORY: 66 years-old Male presenting with Right knee - eval tibial plateau fx. TECHNIQUE: Multidetector CT of the right knee was performed without the use of intravenous contrast. IV contrast: None. A dose lowering technique was used consistent with the principles of ALARA (as low as reasonably achievable). COMPARISON: Plain radiographs from earlier the same day. CT DOSE (mGy.cm): The estimated cumulative dose is 268.14 mGy.cm. FINDINGS: Nylon Mender topogram: Unremarkable. Redemonstration of the comminuted intra-articular fracture of the tibial plateau. Fracture planes violating both the medial and lateral articular surfaces of the tibial plateau. A prominent horizontal metaphyseal component is evidence, bilaterally both the medial and lateral cortex of the tibial metaphysis. There is severe depression in the lateral plateau with approximately 1 cm of Central cortical depression. No significant cortical step-off at the oblique sagittal fracture plane through the medial articular surface. The fibular head is also comminuted. The proximal tibiofibular articulation is disrupted. Another prominent fracture plane extends coronally and separates the posterior portion of the tibial plateau. There is slight apex anterior angulation of this fracture fragment with impaction distally and significant cortical step-off of nearly 1 cm (series 301 image 50). Knee joint effusion with a lipoma hemarthrosis. Suspected disruption of the insertion of the biceps femoris tendon and fibular collateral ligament. Suspected disruption of the popliteus tendon. Evaluation of soft tissues would be better assessed with MR. IMPRESSION: Comminuted Schatzker type fracture with significant cortical step-off and deformity is as detailed above. Violation of both the medial and lateral articular surfaces of the tibia. Severe posterior lateral corner disruption. Electronically signed by: Reji López M.D. 08/01/2017 10:41 PM Dictated Date/Time: 08/01/2017 10:36 PM
[2017-08-01] MEDS ORDERED: OXYC1TAB3 PO (23:15)
[2017-08-01] MEDS ORDERED: OXYCODONE IR HOME PACK PO ONE (23:15)
[2017-08-01] MEDS ORDERED: LDDP5 TD (23:21)
[2017-08-02] MEDS ORDERED: ONDANSETRON INJ 2 MG/ML 2 ML VIAL IV STA (00:07)
[2017-08-02] MEDS ORDERED: SODIUM CHLORIDE 0.9% 500ML 500 ML IV STA (00:07)
[2017-08-02 01:02] VITALS: BP 105/56; PULSE 102; O2SAT 98
== END 2017-08-02 01:00 | disposition home or self-care (01) ==
LOC: EDBD 17:08 → C.EDB 17:09
DX: S82.141A Displaced bicondylar fracture of right tibia, initial encounter for closed fracture (principal); S22.079A Unspecified fracture of T9-T10 vertebra, initial encounter for closed fracture; W11.XXXA Fall on and from ladder, initial encounter; I25.10 Atherosclerotic heart disease of native coronary artery without angina pectoris; E11.9 Type 2 diabetes mellitus without complications; I10 Essential (primary) hypertension

== ENCOUNTER 2017-08-06 07:18 | Inpatient (IN) | payer BC, OTHER ==
--- NOTE | 2017-08-05 22:32 | History and Physical ---
History & Physical Date August 05, 2017. Chief Complaint right knee pain History of Present Illness The patient is a 66 year old male with complaints of severe right knee pain following a fall. He had x-rays performed that noted a bicondylar tibial plateau fx. He is now being set up for surgical tx. Past Medical/Surgical History Medical Problems: (1) Coronary artery disease (2) Diabetes (3) Hypertension Surgical Problems: (1) S/P CABG (coronary artery bypass graft) Allergies Coded Allergies: No Known Allergies (Unverified , 08/01/17) Home Medications Scheduled Atorvastatin (Lipitor), 20 MG PO DAILY Lisinopril (Lisinopril), 5 MG PO DAILY Losartan Potassium (Losartan Potassium), 25 MG PO DAILY Metformin HCl (Metformin HCl), 500 MG PO BID Metoprolol Tartrate (Lopressor) (Lopressor), 50 MG PO BID Pioglitazone Hcl (Pioglitazone Hcl), 30 MG PO DAILY Timolol Maleate (Timolol Gfs 0.5% (Generic For Timoptic-Xe)), 1 DROP OPB BID Scheduled PRN Lidocaine (Lidocaine), 1 PATCH TD DAILY PRN for Pain Oxycodone Ir (Roxicodone Ir), 1-2 TAB PO Q4H PRN for Pain Ranitidine (Zantac), 150 MG PO DAILY PRN for INDIGESTION Physical Examination Skin: warm/dry, no rash Eyes: normal inspection ENT: normal ENT inspection Head: normocephalic, atraumatic Neck: supple, no adenopathy, trachea midline Respiratory/Chest: lungs clear Cardiovascular: regular rate, rhythm Abdomen / GI: normal bowel sounds, non tender Extremities: + pertinent finding (Right knee: + swelling of the knee. Tender at the proximal tibia. No ROM or strength testing performed. Patient is NWB on the RLE.) Neurologic/Psych: no motor/sensory deficits, alert, oriented x 3 Diagnosis Right knee bicondylar tibial plateau fx. Plan of Treatment Recommend an ORIF right bicondylar tibial plateau fx. All potential risks, benefits, complications, alternatives, and rehab have been discussed with the patient and he wishes to proceed. He will be scheduled for 08.06.17 with ASA 81 mg BID x 30 days for DVT prophylaxis.
[~2017-08-06] VITALS: Ht 170.2 cm; Wt 105.0 kg
[2017-08-06] VITALS (7 sets, daily range): BP systolic 132–151; BP diastolic 71–77; PULSE 70–85; TEMP 36.4–37.2; O2SAT 93–97; Ht 170.2 cm; Wt 105.0 kg
[~2017-08-06 07:18] MED LIST changes: +BUPIVACAINE 0.5 % 5 MG/1 ML PF 10ML VIAL ONE; +CEFAZOLIN 1000MG IV PUSH 7.5 ML IV SCH; +CZR25 PO; +LACTATED RINGER'S 1000ML 500 ML IV SCH; +LDDP5 TD; +OXYC1TAB3 PO; +PIOG1TAB23 PO; +ROPIVACAINE 0.5% 5 MG/ML 30 ML VIAL ONE
--- NOTE | 2017-08-06 07:28 | History & Physical Bridge Note ---
H&P Re-Evaluation Bridge Note: I have examined the patient, reviewed the History & Physical and in the interval since the performance of the History & Physical I have noted the following changes of clinical significance: No changes noted
[2017-08-06] MEDS ORDERED: EpINEphrine INJ 1MG/ML AMP 1 MG/ML AMP ONE (07:46)
[2017-08-06] MEDS ORDERED: LABETALOL HCL IV 5 MG/ML 20ML IV PRN (08:15)
[2017-08-06] MEDS ORDERED: HYDROmorphone INJ 2 MG/ML SYR/VIAL IV PRN (08:15)
[2017-08-06] MEDS ORDERED: PHENYLEPHRINE 100MCG/ML 5ML SYR IV PRN (08:15)
[2017-08-06] MEDS ORDERED: ATROPINE SULFATE 0.1 MG/ML 5ML SYR IV PRN (08:15)
[2017-08-06] MEDS ORDERED: ONDANSETRON INJ 2 MG/ML 2 ML VIAL IV PRN ×2 (08:15→12:00)
[2017-08-06] MEDS ORDERED: NALOXONE HCL 0.4 MG/1 ML VIAL/CARP IV PRN (08:15)
[2017-08-06] MEDS ORDERED: MEPERIDINE HCL 25 MG/ML CARP IV PRN (08:15)
[2017-08-06] MEDS ORDERED: FLUMAZENIL 0.1 MG/1 ML 10 ML VIAL IV PRN (08:15)
[2017-08-06] MEDS ORDERED: MoRPHine SULFATE 10 MG/ML CARP/VIAL IV PRN (08:15)
[2017-08-06] MEDS ORDERED: EpHEDrine SULFATE INJ 50 MG/ML AMP IV PRN (08:15)
[2017-08-06] MEDS: LACTATED RINGER'S 1000ML 1,000 ML IV SCH ×2 (08:19→09:46)
[2017-08-06] MEDS ORDERED: MIDAZOLAM HCL 1 MG/ML 2ML VIAL ONE (08:30)
[2017-08-06] MEDS ORDERED: LIDOCAINE HCL 2% 2 ML VIAL (20MG/ML) ONE (08:31)
[2017-08-06] MEDS ORDERED: FENTANYL CITRATE INJ 50 MCG/1 ML 2 ML VIAL ONE (08:31)
[2017-08-06] MEDS ORDERED: PROPOFOL IV EMULSION 10 MG/ML 20 ML VIAL ONE ×5 (08:31→15:01)
[2017-08-06] MEDS ORDERED: ONDANSETRON INJ 2 MG/ML 2 ML VIAL ONE (10:39)
[2017-08-06] MEDS ORDERED: DEXAMETHASONE SOD INJ 4 MG/ML VIAL ONE (10:40)
[2017-08-06] MEDS ORDERED: BACITRACIN 50000 UNIT VIAL ONE (11:47)
[2017-08-06] MEDS ORDERED: CEFAZOLIN SOD 1 GM VIAL ONE (11:50)
[2017-08-06] MEDS ORDERED: RANITIDINE HCL 150 MG TAB PO PRN (12:00)
[2017-08-06] MEDS ORDERED: LIDODERM (LIDOCAINE) PATCH 5% TD PRN (12:00)
[2017-08-06] MEDS ORDERED: BISACODYL 10 MG SUPP PR PRN (12:00)
[2017-08-06] MEDS ORDERED: SOD PHOSPHATE/SOD BIPHOSPHATE ENEMA 132 ML BTL PR PRN (12:00)
[2017-08-06] MEDS ORDERED: NO NSAIDS SCH (12:00)
[2017-08-06] MEDS ORDERED: MoRPHine SULFATE 4 MG/ML 1 ML CARP\\VIAL IV PRN (12:00)
[2017-08-06] MEDS ORDERED: ZOLPIDEM TARTRATE 5 MG TAB PO PRN (12:00)
[2017-08-06] MEDS ORDERED: ALUMINUM/MAGNESIUM/SIMETH (MAALOX MAX) 30 ML UDC PO PRN (12:00)
[2017-08-06] MEDS ORDERED: MAGNESIUM HYDROXIDE SUSP 30 ML UDC PO PRN (12:00)
--- NOTE | 2017-08-06 14:44 | DIAGNOSTIC IMAGING REPORT ---
INTRAOPERATIVE RIGHT KNEE 2 VIEWS CLINICAL HISTORY: Tibial plateau fracture COMPARISON STUDY: 08/01/2017 FINDINGS: 2 intraoperative fluoroscopic spot images are provided for interpretation. 166 seconds of fluoroscopic time was utilized. There is been internal fixation of the comminuted tibial plateau fractures with medial and lateral proximal tibial metallic plates and multiple screws. IMPRESSION: Internally fixated tibial plateau fracture. Electronically signed by: Usama You M.D. 08/06/2017 2:42 PM Dictated Date/Time: 08/06/2017 2:41 PM
--- NOTE | 2017-08-06 15:35 | [facility] Post Operative Brief Note ---
Immediate Operative Summary Operative Date August 06, 2017. Pre-Operative Diagnosis Right Knee Bicondylar Tibial Plateau Fracture, Severely Displaced, Depressed, and Comminuted Post-Operative Diagnosis Right Knee Bicondylar Tibial Plateau Fracture, Severely Displaced, Depressed, and Comminuted Procedure(s) Performed Right Knee Open Reduction Internal Fracture Severely displaced, comminuted, depressed Bicondylar Fracture of Tibial Plateau with posteromedial and lateral locked Synthes plating Surgeon Dr. Fletcher Gutiérrez Sleeve Setter Lockstitch Surgeon(s) Nasim Fuentes PA-C Estimated Blood Loss 30ml Findings Consistent with Post-Op Diagnosis Specimens no specimens per surgeon Drains HV x 2 Anesthesia Type MAC Spinal Regional Complication(s) none Disposition Accompanied Pt To Recover: no Disposition: Recovery Room / PACU
--- NOTE | 2017-08-06 16:37 | DIAGNOSTIC IMAGING REPORT ---
R KNEE 1 OR 2 VIEWS ROUTINE HISTORY: 66 years-old Male post op status post ORIF of the right knee with comminuted proximal tibial fracture COMPARISON: Right knee radiographs 08/01/2017 TECHNIQUE: 3 views of the right knee FINDINGS: Postoperative changes from prior ORIF involving both the medial and lateral tibial plateau fractures as seen on comparison study with improved alignment. There is persistent cortical depression involving the lateral tibial plateau fracture. Evaluation of fine bony detail is limited secondary to overlying casting material. Skin sherly and surgical drains with expected postsurgical soft tissue swelling and deep tissue air. Marginal spurring is noted about the patella. Small joint effusion. IMPRESSION: Improved alignment of the medial and lateral tibial plateau fractures status post ORIF. The above report was generated using voice recognition software. It may contain grammatical, syntax or spelling errors. Electronically signed by: Radu Parker M.D. 08/06/2017 4:36 PM Dictated Date/Time: 08/06/2017 4:34 PM
--- NOTE | 2017-08-06 16:51 | Anesthesiology Progress Note ---
Anesthesia Post Op Note Date & Time August 06, 2017 at 16:51 Vital Signs Pain Intensity: 0 Vital Signs Past 12 Hours Date Time Temp Pulse Resp B/P (MAP) Pulse Ox O2 Delivery O2 Flow Rate FiO2 08/06/17 16:15 36.5 75 14 124/75 99 Nasal Cannula 2 08/06/17 16:10 75 10 125/68 98 Nasal Cannula 2 08/06/17 16:00 72 14 142/72 100 Oxymask 6 08/06/17 15:50 70 12 135/73 100 Oxymask 6 08/06/17 15:40 36.5 70 16 137/74 98 Oxymask 6 08/06/17 08:21 37.0 85 20 147/77 96 Room Air Notes Mental Status: alert / awake / arousable, participated in evaluation Pt Amnestic to Procedure: Yes Nausea / Vomiting: adequately controlled Pain: adequately controlled Airway Patency, RR, SpO2: stable & adequate BP & HR: stable & adequate Hydration State: stable & adequate Neuraxial Anesthesia: was administered, sensory block is resolving Anesthetic Complications: no major complications apparent
[2017-08-06] MEDS: POTASSIUM CHLORIDE INJ 10 MEQ in SODIUM CHLORIDE 0.9% 1000ML 1,000 ML IV SCH (17:25)
[2017-08-06] MEDS: FERROUS GLUCONATE 324 MG TAB PO SCH (17:25)
[2017-08-06] MEDS ORDERED: ASPI-435 PO (18:07)
[2017-08-06] MEDS ORDERED: LPR25 PO (18:07)
[2017-08-06] MEDS ORDERED: LPT40 PO (18:07)
[2017-08-06] MEDS ORDERED: LPR50X PO (18:10)
[2017-08-06] MEDS ORDERED: GLUCOSE 40% GEL 15 GM TUBE PO PRN (18:15)
[2017-08-06] MEDS ORDERED: DEXTROSE 50% 50 ML SYR IV PRN (18:15)
[2017-08-06] MEDS ORDERED: CARBOHYDRATES FOR HYPOGLYCEMIA PO PRN (18:15)
[2017-08-06] MEDS ORDERED: GLUCAGON FOR INJ 1 MG VIAL SQ PRN (18:15)
[2017-08-06] MEDS ORDERED: GLUCOSE 10 TABS/TUBE PO PRN (18:15)
--- NOTE | 2017-08-06 18:46 | Medical Consult ---
Consultation Date of Consultation: August 06, 2017. Attending Physician: Fletcher Gutiérrez D.O. Reason for Consultation: medical management History of Present Illness Pt is 66 y/o M with PMH DM II, CAD S/P CABG 3, dyslipidemia, HTN seen in medical consult s/p ORIF right knee for tibial plateau fracture repair by Dr. Gutiérrez today. Pt states fell off ladder on 08/01/17 resulting in R tibial plateau fracture. Pt states pain moderately controlled at this time. Denies nausea or vomiting. Ate dinner without difficulty. Has not urinated yet since surgery. Last BM 2 days ago. Denies fever/chills, diaphoresis, GARCIA, dizziness, syncope, vision changes, neck pain, CP, SOB, orthopnea, palpitations, cough, sore throat , choking, otalgia, rhinorrhea, abdominal pain, paresthesias, rashes, urinary symptoms, weight loss. Hx nuclear stress 10/2016 - negative for inducible ischemia. Hx echo 10/2016 - EF: 56%, mild tricuspid regurgitation, mild mitral regurgitation Past Medical/Surgical History Medical Problems: (1) CAD (coronary artery disease) Status: Chronic (2) Coronary artery disease Status: Chronic (3) Diabetes Status: Chronic (4) Dyslipidemia Status: Chronic (5) Hypertension Status: Chronic Surgical Problems: (1) Hx of tonsillectomy Status: Resolved (2) S/P CABG (coronary artery bypass graft) Status: Resolved Family History Diabetes mellitus Hypertension Social History Smoking Status: Never Smoker Smokeless Tobacco Use: No Alcohol Use: none Drug Use: none Marital Status: Housing Status: lives with significant other Occupation Status: unemployed Allergies Coded Allergies: No Known Allergies (Unverified , 08/06/17) Current Inpatient Medications Current Inpatient Medications Medications (Trade) Dose Ordered Sig/Jimy Route Start Time Stop Time Status Last Admin Dose Admin Lactated Ringer's 1,000 ml @ 15 mls/hr Q24H IV 08/06/17 06:00 08/07/17 05:59 08/06/17 09:46 15 MLS/HR Potassium Chloride 10 meq/ Sodium Chloride 1,005 ml @ 100 mls/hr Q10H3M IV 08/06/17 17:00 09/05/17 16:59 08/06/17 17:25 100 MLS/HR Miscellaneous Medication (No Nsaids) 1 ea UD N/A 08/06/17 12:00 09/05/17 11:59 Oxycodone HCl (Roxicodone Immediate Rel Tab) 1-2 TABS FOR PAIN 1 TABLET ... Q4H PRN PO 08/06/17 12:00 08/20/17 11:59 Morphine Sulfate (MoRPHine SULFATE INJ) 2 mg Q2HWA PRN IV 08/06/17 12:00 08/20/17 11:59 Acetaminophen (Tylenol Tab) 1,000 mg Q8H PO 08/06/17 22:00 09/05/17 21:59 Magnesium Hydroxide (Milk Of Magnesia Susp) 30 ml Q6H PRN PO 08/06/17 12:00 09/05/17 11:59 Bisacodyl (Dulcolax Supp) 10 mg DAILY PRN NE 08/06/17 12:00 09/05/17 11:59 Sodium Biphosphate/ Sodium Phosphate (Fleet Enema) 132 ml DAILY PRN NE 08/06/17 12:00 09/05/17 11:59 Senna (Senokot Tab) 17.2 mg HS PO 08/06/17 21:00 09/05/17 20:59 Docusate Sodium (coLACE CAP) 100 mg BID PO 08/06/17 21:00 09/05/17 20:59 Diphenhydramine HCl (Benadryl Cap) 25 mg Q8H PRN PO 08/06/17 12:00 09/05/17 11:59 Al Hydrox/Mg Hydrox/Simethicone (Maalox Max Susp) 15 ml Q4H PRN PO 08/06/17 12:00 09/05/17 11:59 Zolpidem Tartrate (Ambien Tab) 5 mg HSZ PRN PO 08/06/17 12:00 09/05/17 11:59 Multivitamins (Multivitamin Tab) 1 tab QAM PO 08/07/17 09:00 09/06/17 08:59 Ondansetron HCl (Zofran Inj) 4 mg Q6H PRN IV 08/06/17 12:00 09/05/17 11:59 Ferrous Gluconate (Ferrous Gluconate Tab) 324 mg TIDM PO 08/06/17 17:45 09/05/17 17:44 08/06/17 17:25 324 MG Cefazolin Sodium 2000 mg/Syringe 15 ml @ 3.75 mls/ min Q8H IV 08/06/17 20:00 08/07/17 04:03 Aspirin (Ecotrin Tab) 81 mg BID PO 08/06/17 21:00 09/05/17 20:59 Lidocaine (Lidoderm Patch 5%) 1 patch DAILY PRN TD 08/06/17 12:00 09/05/17 11:59 Losartan Potassium (coZAAR TAB) 25 mg DAILY PO 08/07/17 09:00 09/06/17 08:59 Ranitidine HCl (zANTac TAB) 150 mg DAILY PRN PO 08/06/17 12:00 09/05/17 11:59 Timolol Maleate (Timoptic-Xe 0.5% Oph Soln) 1 drops BID OPB 08/06/17 21:00 09/05/17 20:59 Miscellaneous (Remove Lidoderm Patch) 1 ea PM PRN N/A 08/06/17 17:15 09/05/17 17:14 Atorvastatin Calcium (Lipitor Tab) 40 mg DAILY PO 08/07/17 09:00 09/06/17 08:59 UNV Metoprolol Tartrate (Lopressor Tab) 75 mg BID PO 08/06/17 21:00 09/05/17 20:59 UNV Insulin Glargine (Lantus Solostar Pen) 15 units Q12 SC 08/06/17 21:00 09/05/17 20:59 UNV Insulin Aspart (novoLOG ASPART) SLIDING SCALE If C... ACHS SC 08/06/17 21:00 09/05/17 20:59 UNV Glucose (Glucose 40% Gel) 15-30 GRAMS 15 GRAMS... UD PRN PO 08/06/17 18:15 09/05/17 18:14 UNV Glucose (Glucose Chew Tab) 4-8 Tablets 4 Tabl... UD PRN PO 08/06/17 18:15 09/05/17 18:14 UNV Dextrose (Dextrose 50% 50ML Syringe) 25-50ML 25ML FOR ... UD PRN IV 08/06/17 18:15 09/05/17 18:14 UNV Glucagon (Glucagon Inj) 1 mg UD PRN SQ 08/06/17 18:15 09/05/17 18:14 UNV Carbohydrates (Carbohydrates For Hypoglycemia) 15-30 GRAMS 15 grams if BSG 54-69... UD PRN PO 08/06/17 18:15 09/05/17 18:14 UNV Review of Systems See HPI for pertinent positives & negatives. All other systems reviewed and were otherwise negative Physical Exam Date Time Temp Pulse Resp B/P (MAP) Pulse Ox O2 Delivery O2 Flow Rate FiO2 08/06/17 17:20 36.4 81 16 149/73 (98) 97 Nasal Cannula 2.0 08/06/17 16:15 36.5 75 14 124/75 99 Nasal Cannula 2 08/06/17 16:10 75 10 125/68 98 Nasal Cannula 2 08/06/17 16:00 72 14 142/72 100 Oxymask 6 08/06/17 15:50 70 12 135/73 100 Oxymask 6 08/06/17 15:40 36.5 70 16 137/74 98 Oxymask 6 08/06/17 08:21 37.0 85 20 147/77 96 Room Air General Appearance: no apparent distress, + obese Head: normocephalic, atraumatic Eyes: normal inspection, sclerae normal ENT: hearing grossly normal, pharynx normal, + pertinent finding (mucous membranes moist) Neck: supple, trachea midline Respiratory/Chest: lungs clear, normal breath sounds, no respiratory distress Cardiovascular: regular rate, rhythm, no murmur, normal peripheral pulses Abdomen/GI: normal bowel sounds, non tender, soft Extremities/Musculoskelatal: + pertinent finding (RLE with surgical dressing in place. BLE distal pulses intact, brisk capillary refill, sensation to light touch intact, pedal pushes and pulls intact) Neurologic/Psych: alert, normal mood/affect, oriented x 3 Skin: warm/dry Laboratory Results Last 24 Hours Test 08/06/17 07:49 08/06/17 15:51 08/06/17 17:10 Bedside Glucose 147 mg/dl 138 mg/dl 182 mg/dl Assessment & Plan Pt post op day# 0 S/P ORIF R knee for Tibial Plateau fracture by Dr Gutiérrez -pain management per ortho -wound management per ortho -PT/OT as appropriate -DVT prophylaxis per ortho -incentive spirometry -monitor H&H for acute blood loss anemia DM II -HA1c in am -hold metformin and actos -Basal, bolus insulin per protocol CAD S/P CABG Denies CP, SOB. -continue ASA, statin, metoprolol HTN stable -continue losartan, metoprolol GERD -continue H2 eric prn DVT Prophylaxis -per ortho Disposition admitted med-surg Full Code Follows with Dr Joseph for routine care Pt was seen with Dr Hurd. See addendum Pt will be seen by Dr Lewis during remaining hospital course Attending addendum: Patient seen and examined care coordinated with Maribell La PA-C This is a 66-year-old male who sustained a mechanical fall/after losing balance and falling off ladder while trying to fix shingles on rooftop of his house Patient landed on his legs, x-ray of extremities shows right tibial plateau fracture, did not had any trauma to head Patient denies of any chest pain shortness of breath dizzy spell of palpitation prior to fall Underwent ORIF of tibial plateau fracture Continues to have moderate pain at surgical site Pain is controlled with current pain medication regimen regimen ordered by orthopedics team Continue further management as per orthopedics team Please refer to further documentation by Maribell La PA-C for discussion of other chronic issues Chelsea Hurd MD Additional Copies To Colton Joseph M.D.
--- NOTE | 2017-08-06 18:51 | OPERATIVE REPORT ---
DATE OF OPERATION: 08/06/2017 PREOPERATIVE DIAGNOSIS: Right displaced comminuted severely depressed bicondylar tibial plateau fracture (Schatzker ). POSTOPERATIVE DIAGNOSIS: Right displaced comminuted severely depressed bicondylar tibial plateau fracture (Schatzker ). PROCEDURE: Open reduction internal fixation right displaced comminuted severely depressed bicondylar tibial plateau fracture with posteromedial and lateral locked Synthes periarticular plating. SURGEON: Fletcher Gutiérrez DO DIRECTOR CAREER: Due to the complex nature of the procedure, the entire surgery was performed with the assistant business manager of [employer]UL[employer] Gordon. The public aid eligibility assistant, under direct supervision, was involved in the actual performance of all aspects of the surgical procedure including hemostasis, tissue retraction and incision, instrument management, patient positioning, and wound closure. ANESTHESIA: General with adductor canal block. SPECIMENS: None. DRAINS: Hemovac x2. COMPLICATIONS: None. BLOOD LOSS: 30 mL. PERTINENT HISTORY: This is a 66-year-old gentleman who was on a ladder with a pack of approximately 70 pounds of shingles. He slipped off the ladder and landed with the shingles in his hand on to his right lower extremity. He had severe pain and buckling of his right knee. He is unable to ambulate, presented to the Emergency Department where he had radiographs and a CT scan. He was placed in a brace on crutches and then referred to orthopedics. He was seen in the orthopedic office and his radiographic studies were reviewed. The patient then scheduled for surgery as indicated. All potential risks, benefits, complications, alternatives, rehab, potential for incomplete relief of symptoms, need for further surgery, DVT, PE, , persistent pain, swelling, scarring, weakness, neurovascular injury, wound complications, hardware failure, nonunion, malunion, need for total knee arthroplasty, and removal of the plates was discussed with the patient. The patient decided to proceed with the procedure as indicated. PROCEDURE IN DETAIL: The patient was administered in his adductor canal block and taken to the operative suite, placed supine on the operating room table. After reviewing consent and identification of proper operative site, the patient was anesthetized and general anesthetic administered. The consent had been reviewed and the proper operative site identified. Next, a tourniquet was applied high on the right thigh over cast padding. Right lower extremity was then sterilely prepped and draped in the usual fashion, elevated, and exsanguinated with an Esmarch bandage and tourniquet inflated to 350 mmHg. Next, a surgical timeout was performed and a 10 blade scalpel was used to make an incision posterior medial aspect of the right knee at the level of the proximal tibial plateau. The incision mirrored the posterior aspect of the medial tibia adjacent to the interval with the gastrocnemius proximally. The incision was deepened through the subcutaneous tissue. Meticulous hemostasis was achieved with electrocautery. The Kevyn's fascia was then incised along the skin incision. The fascial plane between the gastrocnemius and the pes anserine tendons was identified. The gastrocnemius was then retracted posteriorly and the pes anserine was then retracted anteriorly. The deep fascial compartment adjacent to the medial knee was then incised. The incision was made in the posterior one-third of the medial collateral ligaments with some incision through the medial collateral. This was sharply elevated and then the tibial plateau was identified. The medial meniscus was then sharply elevated from the superior aspect of the tibia and the articular surface was visualized. Tag stitch was placed on the meniscus. The Weitlaner retractors were placed deep and the fracture was then clearly evident. A [place] elevator was placed into the fracture, which was irrigated and carefully debrided with a dental pick. A Bilbus bone manipulator was used to reduce the fracture. It was provisionally pinned and then a posteromedial locked Synthes periarticular plate was then first compressed to the bone under live fluoroscopic assistance using a nonlocking screw followed by use of multiple locking screws to stabilize and compress the fracture into near anatomic position confirmed with fluoroscopic assistance. A moist lap sponge was then placed medially and the bump under the patient's left hip was removed allowing better visualization of the lateral knee. A 15 blade scalpel was used to make an incision in a hockey-stick orientation extending from the posterior lateral proximal tibia extending along the anterior compartment of the leg. Meticulous hemostasis was achieved with electrocautery. The lateral fascia was then incised with electrocautery. A sleeve of fascia was created in a contiguous fashion with the iliotibial band. The tibialis anterior was then sharply elevated from the proximal tibia with a Bagley elevator. The proximal tibial fracture was then visualized and a bone Tamp was used to elevate the lateral articular surface under live fluoroscopic assistance. A Synthes locking lateral periarticular plate was then provisionally Fixed to the diaphysis of the tibia to stabilize and compress the multiple Fractures of the proximal tibia. Further bone grafting was not noted to be necessary. A proximal conical lag screw was then used to compress the fracture into near-anatomic position. Multiple locking screws were used to Stabilize the plate against the proximal tibia. Final radiographs were obtained Indicate stable alignment and fixation. The surgical sites were copiously Irrigated with sterile normal saline until clear. The deep fascia was closed using #1 Vicryl both medially and laterally. The iliotibial band was closed using #1 Vicryl. The medial collateral ligament was closed using #1 Vicryl. The dermis Was closed using buried interrupted 2-0 Vicryl over Hemovac suction drains 2. The skin was closed using skin sherly. The tourniquet was released. A sterile Compressive dressing and plaster splint was applied overwrapped with 6 inch Joel wrap. The patient was awakened and transported to recovery in stable Condition. I attest to the content of the Intraoperative Record and any orders documented therein. Any exceptions are noted below. MARY
[2017-08-06] MEDS ORDERED: LOSARTAN POTASSIUM 25 MG TAB PO ONE (19:00)
[2017-08-06] MEDS: OXYCODONE HCL IR 5 MG TAB (IMMEDIATE RELEASE) PO PRN (19:54)
[2017-08-06] MEDS: CEFAZOLIN IV 2,000 MG in SYRINGE 0 ML IV SCH (20:39)
[2017-08-06] MEDS: ASPIRIN 81 MG ECTAB PO SCH (20:54)
[2017-08-06] MEDS: DOCUSATE SODIUM 100 MG CAP PO SCH (20:54)
[2017-08-06] MEDS: SENNA 8.6 MG TAB PO SCH (20:54)
[2017-08-06] MEDS: METOPROLOL TARTRATE 50 MG TAB PO SCH (20:55)
[2017-08-06] MEDS: TIMOLOL GFS 0.5% OPH SOLN 74 DROPS/5 ML BTL OPB SCH (20:55)
[2017-08-06] MEDS: INSULIN ASPART 100 UNITS/ML 3 ML PEN SC SCH (20:59)
[2017-08-06] MEDS: INSULIN GLARGINE SOLOSTAR 100 UNITS/ML 3 ML PEN SC SCH (21:00)
[2017-08-06] MEDS ORDERED: METOPROLOL TARTRATE 50 MG TAB PO SCH (21:00)
[2017-08-06] MEDS ORDERED: METOPROLOL TARTRATE 25 MG TAB PO SCH (21:00)
[2017-08-06] MEDS ORDERED: NURSING VERBAL MED ORDER ONE (22:00)
[2017-08-06] MEDS ORDERED: KETOROLAC TROMETHAMINE 15 MG/ML VIAL ONE (22:05)
[2017-08-06] MEDS ORDERED: OXYCODONE HCL 10 MG TABCR (OXYCONTIN) PO ONE ×2 (22:05→22:15)
[2017-08-06] MEDS: ACETAMINOPHEN 500 MG TAB PO SCH (22:09)
[2017-08-06] MEDS ORDERED: KETOROLAC TROMETHAMINE 15 MG/ML VIAL IV. ONE (22:15)
[2017-08-07] MEDS: MoRPHine SULFATE 4 MG/ML 1 ML CARP\\VIAL IV PRN ×2 (01:24→05:59)
[2017-08-07] MEDS: CEFAZOLIN IV 2,000 MG in SYRINGE 0 ML IV SCH (03:03)
[2017-08-07] MEDS: POTASSIUM CHLORIDE INJ 10 MEQ in SODIUM CHLORIDE 0.9% 1000ML 1,000 ML IV SCH ×2 (03:03→13:58)
[2017-08-07 03:10] VITALS: BP 122/71; PULSE 63; TEMP 36.8; O2SAT 95
[2017-08-07] MEDS: ACETAMINOPHEN 500 MG TAB PO SCH ×3 (05:56→22:06)
[2017-08-07 06:27] LABS: HEMATOCRIT 33.5 % (42-52); HEMOGLOBIN 11.2 g/dL (14.0-18.0); MEAN CELL VOLUME 89.6 fL (80-100); MEAN CORPUSCULAR HEMOGLOBIN 29.9 pg (25-34); MEAN CORPUSCULAR HGB CONC 33.4 g/dl (32-36); MEAN PLATELET VOLUME 9.9 fL (7.4-10.4); PLATELET COUNT 211 K/uL (130-400); RED CELL DISTRIBUTION WIDTH CV 13.1 % (11.5-14.5); RED CELL DISTRIBUTION WIDTH SD 42.3 fL (36.4-46.3); WHITE BLOOD COUNT 10.31 K/uL (4.8-10.8)
--- NOTE | 2017-08-07 06:43 | Orthopedic Progress Note ---
Orthopedic Progress Note Date of Service August 07, 2017. Subjective Post OP Day: 1 Reports: feeling well, complaints (pain off and on), Denies: chest pain, SOB, nausea / vomiting, light headedness, calf pain Objective calves soft nontender, N/V intact, capillary refill less than 2 sec., dressing C /D/I, A&O x3, toes mobile, hemovac drainage (50ml) Date Time Temp Pulse Resp B/P (MAP) Pulse Ox O2 Delivery O2 Flow Rate FiO2 08/07/17 03:10 36.8 63 16 122/71 (88) 95 Room Air 08/06/17 23:30 Room Air 08/06/17 23:15 37.0 70 18 132/71 (91) 95 Room Air 08/06/17 20:23 37.2 80 18 142/73 (96) 95 Room Air 08/06/17 19:00 37.0 82 18 143/72 (95) 97 Nasal Cannula 2.0 08/06/17 17:50 36.8 82 20 151/72 (98) 97 Nasal Cannula 2.0 08/06/17 17:20 36.4 81 16 149/73 (98) 97 Nasal Cannula 2.0 08/06/17 16:45 Nasal Cannula 2.0 08/06/17 16:45 36.6 79 16 137/72 (93) 93 Nasal Cannula 2.0 08/06/17 16:45 Nasal Cannula 2.0 08/06/17 16:15 36.5 75 14 124/75 99 Nasal Cannula 2 08/06/17 16:10 75 10 125/68 98 Nasal Cannula 2 08/06/17 16:00 72 14 142/72 100 Oxymask 6 08/06/17 15:50 70 12 135/73 100 Oxymask 6 08/06/17 15:40 36.5 70 16 137/74 98 Oxymask 6 08/06/17 08:21 37.0 85 20 147/77 96 Room Air Laboratory Results 24 Hours: Test 08/07/17 05:55 Hematocrit 33.5 % Hemoglobin 11.2 g/dL Assessment & Plan Assessment: POD 1 s/p Right ORIF Tibial Plateau Plan: PT/OT Adjust pain meds as necessary Planning for dc to home upon dc Inhouse Planning Pain Management: Morphine, Oxy IR DVT Prophylaxis: TEDs, SCDs, ASA Discharge Planning Discharge Planning: home
[2017-08-07 06:53] VITALS: BP 115/70; PULSE 63; TEMP 37.2; O2SAT 96
[2017-08-07 07:22] LABS: HEMOGLOBIN A1C 6.9 % (4.5-5.6)
--- NOTE | 2017-08-07 07:47 | Anesthesiology Progress Note ---
Anesthesia Post Op Note Date & Time August 07, 2017 at 07:47 Vital Signs Pain Intensity: 7.0 Vital Signs Past 12 Hours Date Time Temp Pulse Resp B/P (MAP) Pulse Ox O2 Delivery O2 Flow Rate FiO2 08/07/17 06:53 37.2 63 18 115/70 (85) 96 Room Air 08/07/17 03:10 36.8 63 16 122/71 (88) 95 Room Air 08/06/17 23:30 Room Air 08/06/17 23:15 37.0 70 18 132/71 (91) 95 Room Air 08/06/17 20:23 37.2 80 18 142/73 (96) 95 Room Air Notes Mental Status: alert / awake / arousable, participated in evaluation Pt Amnestic to Procedure: Yes Nausea / Vomiting: adequately controlled Pain: adequately controlled Airway Patency, RR, SpO2: stable & adequate BP & HR: stable & adequate Hydration State: stable & adequate Neuraxial Anesthesia: sensory block resolved Anesthetic Complications: no major complications apparent
[2017-08-07 08:06] LABS: CALCIUM 7.8 mg/dl (8.5-10.1); CREATININE 1.04 mg/dl (0.60-1.40)
[2017-08-07] MEDS: OXYCODONE HCL IR 5 MG TAB (IMMEDIATE RELEASE) PO PRN ×4 (08:25→22:22)
[2017-08-07] MEDS: TIMOLOL GFS 0.5% OPH SOLN 74 DROPS/5 ML BTL OPB SCH ×2 (08:25→22:07)
[2017-08-07] MEDS: ASPIRIN 81 MG ECTAB PO SCH ×2 (08:26→22:05)
[2017-08-07] MEDS: LOSARTAN POTASSIUM 25 MG TAB PO SCH (08:26)
[2017-08-07] MEDS: DOCUSATE SODIUM 100 MG CAP PO SCH ×2 (08:26→22:02)
[2017-08-07] MEDS: METOPROLOL TARTRATE 50 MG TAB PO SCH ×2 (08:27→22:03)
[2017-08-07] MEDS: ATORVASTATIN 40 MG TAB PO SCH (08:27)
[2017-08-07] MEDS: FERROUS GLUCONATE 324 MG TAB PO SCH ×3 (08:28→18:21)
[2017-08-07] MEDS ORDERED: METFORMIN HCL 500 MG TAB PO SCH (08:30)
[2017-08-07] MEDS: INSULIN GLARGINE SOLOSTAR 100 UNITS/ML 3 ML PEN SC SCH ×2 (08:33→22:09)
[2017-08-07] MEDS: INSULIN ASPART 100 UNITS/ML 3 ML PEN SC SCH ×4 (08:33→22:05)
[2017-08-07] MEDS ORDERED: PIOGLITAZONE TAB 15 MG TAB PO SCH (09:00)
[2017-08-07] MEDS ORDERED: ATORVASTATIN 20 MG TAB PO SCH (09:00)
[2017-08-07] MEDS ORDERED: LISINOPRIL 5 MG TAB PO SCH (09:00)
[2017-08-07] MEDS: MULTIVITAMIN TAB PO SCH (09:22)
[2017-08-07 15:07] VITALS: BP 121/62; PULSE 78; TEMP 36.8; O2SAT 93
[2017-08-07] MEDS: SENNA 8.6 MG TAB PO SCH (22:07)
[2017-08-07 22:12] VITALS: BP 144/87; PULSE 82
--- NOTE | 2017-08-07 22:45 | Progress Note ---
Medicine Progress Note Date & Time of Visit: August 07, 2017 at 18:50 . Subjective Doing well postoperatively. No chest pain. No cough or dyspnea. No nausea or vomiting. Having some postop pain. . Objective Last 8 Hrs Date Time Temp Pulse Resp B/P (MAP) Pulse Ox O2 Delivery O2 Flow Rate FiO2 08/07/17 22:12 82 144/87 (106) 08/07/17 15:45 Room Air 08/07/17 15:07 36.8 78 18 121/62 (81) 93 Room Air Physical Exam: General- sitting in chair; no distress Lungs- clear to auscultation; no respiratory distress Cardiovascular- RRR; no murmur; no gallop; no JVD; no pretibial edema LLE (RLE bandaged) Abdomen- + bowel sounds, soft, nontender Extremities- no cyanosis; no calf tenderness LLE; RLE bandaged Neuro- alert, oriented Skin- warm & dry . Laboratory Results: Last 24 Hours Test 08/07/17 05:55 08/07/17 08:15 08/07/17 12:05 08/07/17 17:10 White Blood Count 10.31 K/uL Red Blood Count 3.74 M/uL Hemoglobin 11.2 g/dL Hematocrit 33.5 % Mean Corpuscular Volume 89.6 fL Mean Corpuscular Hemoglobin 29.9 pg Mean Corpuscular Hemoglobin Concent 33.4 g/dl RDW Standard Deviation 42.3 fL RDW Coefficient of Variation 13.1 % Platelet Count 211 K/uL Mean Platelet Volume 9.9 fL Sodium Level 134 mmol/L Potassium Level 4.0 mmol/L Chloride Level 101 mmol/L Carbon Dioxide Level 28 mmol/L Anion Gap 5.0 mmol/L Blood Urea Nitrogen 17 mg/dl Creatinine 1.04 mg/dl Est Creatinine Clear Calc Drug Dose 80.7 ml/min Estimated GFR () 86.3 Estimated GFR (Non- 74.5 BUN/Creatinine Ratio 15.9 Random Glucose 154 mg/dl Estimated Average Glucose 151 mg/dl Hemoglobin A1c 6.9 % Calcium Level 7.8 mg/dl Chemistry Specimen Hemolysis Bedside Glucose 156 mg/dl 113 mg/dl 94 mg/dl Test 08/07/17 21:00 Bedside Glucose 124 mg/dl Assessment & Plan S/P ORIF RIGHT TIBIAL PLATEAU FRACTURE POD # 1. CORONARY ARTERY DISEASE No anginal symptoms. Continue aspirin, metoprolol, statin. HYPERTENSION BP this morning 115/70. Continue metoprolol and losartan. DM TYPE 2 Usually well-controlled on metformin and pioglitazone.. Hgb A1C = 6.9. Hold oral agents during hospital stay. Lantus / NovoLog per protocol. FBS this morning = 156. VTE PROPHYLAXIS Per Orthopedics protocol. Thank you for this consultation. We will follow the patient with you during their hospital stay. You can reach a member of the [facility] Medicine Team 20/10 via pager @ [phone]. You can reach me via cell @ [phone]. . Current Inpatient Medications: Current Inpatient Medications Medications (Trade) Dose Ordered Sig/Jimy Route Start Time Stop Time Status Last Admin Dose Admin Miscellaneous Medication (No Nsaids) 1 ea UD N/A 08/06/17 12:00 09/05/17 11:59 Oxycodone HCl (Roxicodone Immediate Rel Tab) 1-2 TABS FOR PAIN 1 TABLET ... Q4H PRN PO 08/06/17 12:00 08/20/17 11:59 08/07/17 22:22 10 MG Acetaminophen (Tylenol Tab) 1,000 mg Q8H PO 08/06/17 22:00 09/05/17 21:59 08/07/17 22:06 1,000 MG Magnesium Hydroxide (Milk Of Magnesia Susp) 30 ml Q6H PRN PO 08/06/17 12:00 09/05/17 11:59 Bisacodyl (Dulcolax Supp) 10 mg DAILY PRN NE 08/06/17 12:00 09/05/17 11:59 Sodium Biphosphate/ Sodium Phosphate (Fleet Enema) 132 ml DAILY PRN NE 08/06/17 12:00 09/05/17 11:59 Senna (Senokot Tab) 17.2 mg HS PO 08/06/17 21:00 09/05/17 20:59 08/07/17 22:07 17.2 MG Docusate Sodium (coLACE CAP) 100 mg BID PO 08/06/17 21:00 09/05/17 20:59 08/07/17 22:02 100 MG Diphenhydramine HCl (Benadryl Cap) 25 mg Q8H PRN PO 08/06/17 12:00 09/05/17 11:59 Al Hydrox/Mg Hydrox/Simethicone (Maalox Max Susp) 15 ml Q4H PRN PO 08/06/17 12:00 09/05/17 11:59 Zolpidem Tartrate (Ambien Tab) 5 mg HSZ PRN PO 08/06/17 12:00 09/05/17 11:59 Multivitamins (Multivitamin Tab) 1 tab QAM PO 08/07/17 09:00 09/06/17 08:59 08/07/17 09:22 1 TAB Ondansetron HCl (Zofran Inj) 4 mg Q6H PRN IV 08/06/17 12:00 09/05/17 11:59 Ferrous Gluconate (Ferrous Gluconate Tab) 324 mg TIDM PO 08/06/17 17:45 09/05/17 17:44 08/07/17 18:21 324 MG Aspirin (Ecotrin Tab) 81 mg BID PO 08/06/17 21:00 09/05/17 20:59 08/07/17 22:05 81 MG Lidocaine (Lidoderm Patch 5%) 1 patch DAILY PRN TD 08/06/17 12:00 09/05/17 11:59 Losartan Potassium (coZAAR TAB) 25 mg DAILY PO 08/07/17 09:00 09/06/17 08:59 08/07/17 08:26 25 MG Ranitidine HCl (zANTac TAB) 150 mg DAILY PRN PO 08/06/17 12:00 09/05/17 11:59 Timolol Maleate (Timoptic-Xe 0.5% Oph Soln) 1 drops BID OPB 08/06/17 21:00 09/05/17 20:59 08/07/17 22:07 1 DROPS Miscellaneous (Remove Lidoderm Patch) 1 ea PM PRN N/A 08/06/17 17:15 09/05/17 17:14 Atorvastatin Calcium (Lipitor Tab) 40 mg DAILY PO 08/07/17 09:00 09/06/17 08:59 08/07/17 08:27 40 MG Metoprolol Tartrate (Lopressor Tab) 75 mg BID PO 08/06/17 21:00 09/05/17 20:59 08/07/17 22:03 75 MG Insulin Glargine (Lantus Solostar Pen) 15 units Q12 SC 08/06/17 21:00 09/05/17 20:59 08/07/17 22:09 15 UNITS Insulin Aspart (novoLOG ASPART) SLIDING SCALE If C... ACHS SC 08/06/17 21:00 09/05/17 20:59 08/07/17 18:26 3 UNITS Glucose (Glucose 40% Gel) 15-30 GRAMS 15 GRAMS... UD PRN PO 08/06/17 18:15 09/05/17 18:14 Glucose (Glucose Chew Tab) 4-8 Tablets 4 Tabl... UD PRN PO 08/06/17 18:15 09/05/17 18:14 Dextrose (Dextrose 50% 50ML Syringe) 25-50ML 25ML FOR ... UD PRN IV 08/06/17 18:15 09/05/17 18:14 Glucagon (Glucagon Inj) 1 mg UD PRN SQ 08/06/17 18:15 09/05/17 18:14 Carbohydrates (Carbohydrates For Hypoglycemia) 15-30 GRAMS 15 grams if BSG 54-69... UD PRN PO 08/06/17 18:15 09/05/17 18:14 Morphine Sulfate (MoRPHine SULFATE INJ) 4 mg Q3H PRN IV 08/06/17 22:15 08/20/17 22:14 08/07/17 05:59 4 MG
[2017-08-07 22:48] VITALS: BP 125/66; PULSE 78; TEMP 37.5; O2SAT 95
[2017-08-08] MEDS: OXYCODONE HCL IR 5 MG TAB (IMMEDIATE RELEASE) PO PRN ×2 (04:26→08:44)
[2017-08-08] MEDS: ACETAMINOPHEN 500 MG TAB PO SCH (05:28)
[2017-08-08 06:28] LABS: HEMATOCRIT 30.5 % (42-52); HEMOGLOBIN 10.3 g/dL (14.0-18.0); MEAN CELL VOLUME 89.7 fL (80-100); MEAN CORPUSCULAR HEMOGLOBIN 30.3 pg (25-34); MEAN CORPUSCULAR HGB CONC 33.8 g/dl (32-36); MEAN PLATELET VOLUME 9.7 fL (7.4-10.4); PLATELET COUNT 217 K/uL (130-400); RED CELL DISTRIBUTION WIDTH CV 13.1 % (11.5-14.5); WHITE BLOOD COUNT 10.16 K/uL (4.8-10.8)
[2017-08-08 06:49] LABS: CALCIUM 7.8 mg/dl (8.5-10.1); CREATININE 0.81 mg/dl (0.60-1.40); POTASSIUM 3.5 mmol/L (3.5-5.1)
[2017-08-08 07:41] VITALS: BP 132/72; PULSE 64; TEMP 36.8; O2SAT 92
[2017-08-08] MEDS: MULTIVITAMIN TAB PO SCH (08:27)
[2017-08-08] MEDS: LOSARTAN POTASSIUM 25 MG TAB PO SCH (08:27)
[2017-08-08] MEDS: FERROUS GLUCONATE 324 MG TAB PO SCH (08:27)
[2017-08-08] MEDS: METOPROLOL TARTRATE 50 MG TAB PO SCH (08:28)
[2017-08-08] MEDS: ATORVASTATIN 40 MG TAB PO SCH (08:29)
[2017-08-08] MEDS: TIMOLOL GFS 0.5% OPH SOLN 74 DROPS/5 ML BTL OPB SCH (08:29)
[2017-08-08] MEDS: INSULIN GLARGINE SOLOSTAR 100 UNITS/ML 3 ML PEN SC SCH (08:42)
[2017-08-08] MEDS: INSULIN ASPART 100 UNITS/ML 3 ML PEN SC SCH (08:42)
[2017-08-08] MEDS: ASPIRIN 81 MG ECTAB PO SCH (09:12)
[2017-08-08] MEDS: DOCUSATE SODIUM 100 MG CAP PO SCH (09:12)
--- NOTE | 2017-08-08 09:54 | Progress Note ---
Medicine Progress Note Date & Time of Visit: August 08, 2017 at 09:52 . Subjective Doing well. No chest pain. No cough or dyspnea. No nausea or vomiting. Not passing any stool yet. Still having some postop pain. . Objective Last 8 Hrs Date Time Temp Pulse Resp B/P (MAP) Pulse Ox O2 Delivery O2 Flow Rate FiO2 08/08/17 07:41 36.8 64 16 132/72 (92) 92 Room Air 08/08/17 07:25 Room Air Physical Exam: General- lying in bed; no distress Lungs- clear to auscultation; no respiratory distress Cardiovascular- RRR; no murmur; no gallop; no JVD; no pretibial edema Abdomen- + bowel sounds, soft, nontender Extremities- no cyanosis; no calf tenderness; immobilizer RLE Neuro- alert, oriented Skin- warm & dry . Laboratory Results: Last 24 Hours Test 08/07/17 12:05 08/07/17 17:10 08/07/17 21:00 08/08/17 05:57 Bedside Glucose 113 mg/dl 94 mg/dl 124 mg/dl White Blood Count 10.16 K/uL Red Blood Count 3.40 M/uL Hemoglobin 10.3 g/dL Hematocrit 30.5 % Mean Corpuscular Volume 89.7 fL Mean Corpuscular Hemoglobin 30.3 pg Mean Corpuscular Hemoglobin Concent 33.8 g/dl RDW Standard Deviation 43.0 fL RDW Coefficient of Variation 13.1 % Platelet Count 217 K/uL Mean Platelet Volume 9.7 fL Sodium Level 136 mmol/L Potassium Level 3.5 mmol/L Chloride Level 100 mmol/L Carbon Dioxide Level 29 mmol/L Anion Gap 8.0 mmol/L Blood Urea Nitrogen 15 mg/dl Creatinine 0.81 mg/dl Est Creatinine Clear Calc Drug Dose 103.6 ml/min Estimated GFR () 107.3 Estimated GFR (Non- 92.6 BUN/Creatinine Ratio 18.9 Random Glucose 136 mg/dl Calcium Level 7.8 mg/dl Test 08/08/17 08:02 Bedside Glucose 148 mg/dl Assessment & Plan S/P ORIF RIGHT TIBIAL PLATEAU FRACTURE POD # 2. CORONARY ARTERY DISEASE No anginal symptoms. Continue aspirin, metoprolol, statin. HYPERTENSION BP this morning 132/72. Continue metoprolol and losartan. DM TYPE 2 Usually well-controlled on metformin and pioglitazone.. Hgb A1C = 6.9. Hold oral agents during hospital stay. Lantus / NovoLog per protocol. FBS this morning = 148. Resume usual meds at time of discharge. VTE PROPHYLAXIS Per Orthopedics protocol. Thank you for this consultation. We will follow the patient with you during their hospital stay. You can reach a member of the [facility] Medicine Team 20/10 via pager @ [phone]. You can reach me via cell @ [phone]. . Current Inpatient Medications: Current Inpatient Medications Medications (Trade) Dose Ordered Sig/Jimy Route Start Time Stop Time Status Last Admin Dose Admin Miscellaneous Medication (No Nsaids) 1 ea UD N/A 08/06/17 12:00 09/05/17 11:59 Oxycodone HCl (Roxicodone Immediate Rel Tab) 1-2 TABS FOR PAIN 1 TABLET ... Q4H PRN PO 08/06/17 12:00 08/20/17 11:59 08/08/17 08:44 10 MG Acetaminophen (Tylenol Tab) 1,000 mg Q8H PO 08/06/17 22:00 09/05/17 21:59 08/08/17 05:28 1,000 MG Magnesium Hydroxide (Milk Of Magnesia Susp) 30 ml Q6H PRN PO 08/06/17 12:00 09/05/17 11:59 Bisacodyl (Dulcolax Supp) 10 mg DAILY PRN AL 08/06/17 12:00 09/05/17 11:59 Sodium Biphosphate/ Sodium Phosphate (Fleet Enema) 132 ml DAILY PRN AL 08/06/17 12:00 09/05/17 11:59 Senna (Senokot Tab) 17.2 mg HS PO 08/06/17 21:00 09/05/17 20:59 08/07/17 22:07 17.2 MG Docusate Sodium (coLACE CAP) 100 mg BID PO 08/06/17 21:00 09/05/17 20:59 08/08/17 09:12 100 MG Diphenhydramine HCl (Benadryl Cap) 25 mg Q8H PRN PO 08/06/17 12:00 09/05/17 11:59 Al Hydrox/Mg Hydrox/Simethicone (Maalox Max Susp) 15 ml Q4H PRN PO 08/06/17 12:00 09/05/17 11:59 Zolpidem Tartrate (Ambien Tab) 5 mg HSZ PRN PO 08/06/17 12:00 09/05/17 11:59 Multivitamins (Multivitamin Tab) 1 tab QAM PO 08/07/17 09:00 09/06/17 08:59 08/08/17 08:27 1 TAB Ondansetron HCl (Zofran Inj) 4 mg Q6H PRN IV 08/06/17 12:00 09/05/17 11:59 Ferrous Gluconate (Ferrous Gluconate Tab) 324 mg TIDM PO 08/06/17 17:45 09/05/17 17:44 08/08/17 08:27 324 MG Aspirin (Ecotrin Tab) 81 mg BID PO 08/06/17 21:00 09/05/17 20:59 08/08/17 09:12 81 MG Lidocaine (Lidoderm Patch 5%) 1 patch DAILY PRN TD 08/06/17 12:00 09/05/17 11:59 Losartan Potassium (coZAAR TAB) 25 mg DAILY PO 08/07/17 09:00 09/06/17 08:59 08/08/17 08:27 25 MG Ranitidine HCl (zANTac TAB) 150 mg DAILY PRN PO 08/06/17 12:00 09/05/17 11:59 Timolol Maleate (Timoptic-Xe 0.5% Oph Soln) 1 drops BID OPB 08/06/17 21:00 09/05/17 20:59 08/08/17 08:29 1 DROPS Miscellaneous (Remove Lidoderm Patch) 1 ea PM PRN N/A 08/06/17 17:15 09/05/17 17:14 Atorvastatin Calcium (Lipitor Tab) 40 mg DAILY PO 08/07/17 09:00 09/06/17 08:59 08/08/17 08:29 40 MG Metoprolol Tartrate (Lopressor Tab) 75 mg BID PO 08/06/17 21:00 09/05/17 20:59 08/08/17 08:28 75 MG Insulin Glargine (Lantus Solostar Pen) 15 units Q12 SC 5/10/18 21:00 09/05/17 20:59 08/08/17 08:42 15 UNITS Insulin Aspart (novoLOG ASPART) SLIDING SCALE If C... ACHS SC 08/06/17 21:00 09/05/17 20:59 08/08/17 08:42 6 UNITS Glucose (Glucose 40% Gel) 15-30 GRAMS 15 GRAMS... UD PRN PO 08/06/17 18:15 09/05/17 18:14 Glucose (Glucose Chew Tab) 4-8 Tablets 4 Tabl... UD PRN PO 08/06/17 18:15 09/05/17 18:14 Dextrose (Dextrose 50% 50ML Syringe) 25-50ML 25ML FOR ... UD PRN IV 08/06/17 18:15 09/05/17 18:14 Glucagon (Glucagon Inj) 1 mg UD PRN SQ 08/06/17 18:15 09/05/17 18:14 Carbohydrates (Carbohydrates For Hypoglycemia) 15-30 GRAMS 15 grams if BSG 54-69... UD PRN PO 08/06/17 18:15 09/05/17 18:14 Morphine Sulfate (MoRPHine SULFATE INJ) 4 mg Q3H PRN IV 08/06/17 22:15 08/20/17 22:14 08/07/17 05:59 4 MG
--- NOTE | 2017-08-08 10:10 | Orthopedic Progress Note ---
Orthopedic Progress Note Date of Service August 08, 2017. Subjective Post OP Day: 2 Reports: feeling well (Moderate pain) Objective calves soft nontender (moderate swelling but not overly tense), N/V intact, incision C/D/I (dressing changed), toes mobile Date Time Temp Pulse Resp B/P (MAP) Pulse Ox O2 Delivery O2 Flow Rate FiO2 08/08/17 07:41 36.8 64 16 132/72 (92) 92 Room Air 08/08/17 07:25 Room Air 08/08/17 00:00 Room Air 08/07/17 22:48 37.5 78 18 125/66 (85) 95 Room Air 08/07/17 22:12 82 144/87 (106) 08/07/17 15:45 Room Air 08/07/17 15:07 36.8 78 18 121/62 (81) 93 Room Air Laboratory Results 24 Hours: Test 08/08/17 05:57 Hematocrit 30.5 % Hemoglobin 10.3 g/dL Assessment & Plan Assessment: POD 2 s/p Right ORIF Tibial Plateau Plan: 1. Med management 2. DVT prophylaxis- ASA 3. D/C planning- home today Inhouse Planning Pain Management: Morphine, Oxy IR DVT Prophylaxis: TEDs, SCDs, ASA Discharge Planning Discharge Planning: home
[2017-08-08] MEDS ORDERED: ASPI-320 PO (10:12)
[2017-08-08] MEDS ORDERED: ACET-24 PO (10:12)
[2017-08-08] MEDS ORDERED: RXC5 PO (10:12)
--- NOTE | 2017-08-08 10:17 | Discharge Instructions ---
Discharge Instructions Date of Service August 08, 2017. Admission Reason for Admission: Displaced Bicondylar Fracture Of Right Tibia Discharge Discharge Diagnosis / Problem: Right tibial plateau fracture Discharge Goals Goal(s): Decrease discomfort, Improve function Activity Recommendations Activity Limitations: as noted below Weightbearing Status: Right non-weightbearing . Instructions / Follow-Up Instructions / Follow-Up Nonweightbearing right lower extremity with walker/crutches. Maintain knee immobilizer at all times when ambulatory. May remove when sedentary or for shower but maintain knee extension. May shower as tolerated while maintaining knee extension and nonweightbearing. Frequent ice and elevation to lower extremity. Move foot/ankle as tolerated. Follow-up with Dr Gutiérrez ~ 10-14 days , call [phone] for appt, questions. Current Hospital Diet Patient's current hospital diet: Diabetes Type 2 Diet, AHA Diet (Heart Healthy) Discharge Diet Recommended Diet: AHA Diet (Heart Healthy), Diabetes Type 2 Diet Procedures Procedures Performed: Right Knee Open Reduction Internal Fracture Severely displaced, comminuted, depressed Bicondylar Fracture of Tibial Plateau with posteromedial and lateral locked Synthes plating Pending Studies Studies pending at discharge: no Laboratory Results Hemoglobin A1c Test 08/07/17 05:55 Range/Units Estimated Average Glucose 151 mg/dl Hemoglobin A1c 6.9 H 4.5-5.6 % Medical Emergencies . Who to Call and When: Medical Emergencies: If at any time you feel your situation is an emergency, please call 911 immediately. . Non-Emergent Contact Non-Emergency issues call your: Surgeon Call Non-Emergent contact if: temperature is above 101.5, your pain is not controlled, wound has increased drainage, wound has increased redness . "Provider Documentation" section prepared by Mario Rush PA-C. . [facility] Drug Monitoring Program Search Results: patient reviewed within database, no issues identified
[2017-08-08 11:49] VITALS: BP 132/72; PULSE 64; TEMP 36.8; O2SAT 92
--- NOTE | 2017-08-10 08:02 | ORTHOPEDIC PROGRESS NOTE ---
DATE: 08/07/2017 SUBJECTIVE: I returned to see the patient this evening to check on his pain control and how comfortable his splint was. The patient was sitting up in a chair and said he was having difficulty ambulating and he was starting to have a fair amount of pain on rubbing from the splint on the back of his knee. I checked the patient's drainage on his Hemovac, which was only 60 at this point in time and decided to have the patient undergo a dressing change. OBJECTIVE: The patient's right leg dressing was taken down. He has 2 incisions, 1 on the medial and lateral aspect of the right knee. The drains were removed without difficulty. There was no overt drainage coming from the drain holes themselves. The splint was fully removed and patient had noted swelling of the knee as well as of the lower extremity down to his ankle and foot. The wounds were then redressed with Xeroform, 4 x 3 gauze and a Kerlix wrap and then 6-inch Joel wraps. In the process, on palpating his calf, the patient was having some moderate pain in his calf. Upon dorsiflexing his foot, he felt that he had pain shooting down the calf straight down the center that he denied any major sensation loss at this time and as time progressed after the dressing change the patient stated that his pain behind his leg was starting to feel better. There was no overt erythema of the wounds. ASSESSMENT: Open reduction and internal fixation of right tibial plateau fracture. PLAN: As the patient continued to lie in bed, he felt relief from the pain in the back portion of his leg. I will discuss the case with Dr. Taveras this evening and decide whether ultrasound should be performed to rule out a DVT. Certainly the amount of swelling that he does have could be contributed to the 2-incision surgery that he had. Plans will be to continue dressings and immobilizer and nonweightbearing on the right lower extremity.
== END 2017-08-08 12:05 | disposition home or self-care (01) | DRG 494 ==
LOC: C.ACU 07:18 → C.3E 11:59 → ENRESERV 16:09
PROVIDERS: ADMIT Orthopaedic Surgery Sports Medicine; ATTEND Orthopaedic Surgery Sports Medicine
PROC: 0QSG04Z Reposition Right Tibia with Internal Fixation Device, Open Approach (ICD-10-PCS; principal; 2017-08-06 10:00)
DX: S82.141A Displaced bicondylar fracture of right tibia, initial encounter for closed fracture (principal); E11.9 Type 2 diabetes mellitus without complications; I10 Essential (primary) hypertension; I25.10 Atherosclerotic heart disease of native coronary artery without angina pectoris; E78.5 Hyperlipidemia, unspecified; Z79.84 Long term (current) use of oral hypoglycemic drugs; Z79.899 Other long term (current) drug therapy; Z95.5 Presence of coronary angioplasty implant and graft; W19.XXXA Unspecified fall, initial encounter

== ENCOUNTER 2019-06-20 06:15 | Observation (INO) ==
[2019-06-20] MEDS ORDERED: ACETAMINOPHEN 1,000 MG/100 ML VIAL IV STA (06:39)
[2019-06-20] MEDS ORDERED: ONDANSETRON INJ 2 MG/ML 2 ML VIAL IV STA (06:39)
[2019-06-20] MEDS ORDERED: KETOROLAC TROMETHAMINE 15 MG/ML VIAL IV STA (06:39)
--- NOTE | 2019-06-20 06:44 | Emergency Department Note ---
ED Provider Note NAME: MAGEN WILL AGE: 68 SEX: M : 1950 ARRIVES VIA: Ambulance INFORMANT: [Patient][ems] ED PROVIDER(S): [Frankie Montero MD] CHIEF COMPLAINT: Right upper quadrant abdominal pain HISTORY OF PRESENT ILLNESS: The patient is a 68-year-old male who presents to the ER with right upper quadrant abdominal pain. The pain is rated as moderate in severity and constant with radiation to the back. The patient states that his pain had been an 8/10 but is now 5/10 after receiving IV fentanyl in route. He also received IV Zofran for nausea. The patient states that 4 days ago he began experiencing some discomfort. He states that things got better though until yesterday around 12 hours ago. After eating, he began having right upper quadrant/epigastric abdominal pain. He began having nausea and vomiting. Things became severe around midnight. He presents today by ambulance for help with the discomfort. He denies any shortness of breath. He states that he was sweaty and quite nauseated. The patient states that he does have gallstones and believes that may be the problem. There has been no fever, no cough or congestion. No real diarrhea. No urinary complaints. REVIEW OF SYSTEMS: See HPI for pertinent positives and negatives. A total of ten systems were reviewed and were otherwise negative. PMHx/PSHx: See Below SOCIAL HISTORY: See Below. PHYSICAL EXAM: GENERAL: Patient is in mild distress from pain. HEENT: No acute trauma, normocephalic atraumatic, mucous membranes moist, no n edita congestion, no scleral icterus. NECK: No stridor, no adenopathy, no meningismus, trachea is midline. LUNGS: Clear to auscultation bilaterally, no wheeze, no rhonchi, breath sounds equal. HEART: Without murmurs gallops or rubs, regular rate and rhythm. ABDOMEN: Soft, mild to moderately tender in the right upper quadrant, bowel sounds positive, no hernias, no peritonitis. EXTREMITIES: No cyanosis or edema, full range of motion of all the joints without pain or difficulty, no signs for acute trauma. NEUROLOGIC: Oriented x 3, no acute motor or sensory deficits, no focal weakness. SKIN: No rash, no jaundice, mild diaphoresis. Pale. DIFFERENTIAL DIAGNOSIS: Appendicitis, testicular torsion, infections, diverticulitis, UTI, obstruction, mesenteric ischemia, aortic pathology, inflammatory bowel disease, renal colic, PUD, pancreatitis, biliary pathology, hernia, volvulus, constipation, as well as other pathologies. EMERGENCY DEPARTMENT COURSE/PROCEDURES: ECG: Indication was epigastric abdominal pain. There is a normal sinus rhythm with a rate of 60. There is a right bundle branch block. QTC is 474. There are no PVCs, no ST elevations. Compared to an EKG from 01 Aug 2017, there are no changes. Continuous Cardiac Monitoring: An order was placed for continuous cardiac monitoring. The monitor shows a rate of 62 with normal sinus rhythm. MEDICAL DECISION MAKING: There is no leukocytosis or concerning anemia. No kidney failure. Magnesium slightly low at 1.7. Bilirubin was mildly high at 1.1, no evidence for pancreatitis. EKG shows a normal sinus rhythm, no acute ischemia. Cardiac enzyme testing x1 is not consistent with acute cardiac injury. Chest film shows some possible fluid overload versus poor inspiration, there was no pneumonia, no free air. Gallbladder ultrasound shows gallstones and some sludge, the gallbladder wall was borderline thickened, no free fluid. Early acute cholecystitis was questioned. On exam, the patient was somewhat tender in the right upper quadrant. Urinalysis shows some dehydration, no infection. The patient received IV saline for hydration. He was given IV magnesium for the lower magnesium value. He was given IV Tylenol, IV Zofran and IV Mefoxin. He was given a dose of IV Toradol. I did speak with general surgery, they recommended a medical admission. They recommended antibiotics. No emergent surgical intervention was required. I spoke to the patient about his findings, I talked with case management. The on-call hospitalist has been consulted. Impression & Plan Acute cholecystitis, Vomiting, Hypomagnesemia Past Med/Surg History Medical History CAD (coronary artery disease) (Chronic) Tibial plateau fracture, right (Acute) Social History Feels Safe at Home: Yes Smoking Status: Never smoker Results & Data Vital Signs Vital Signs - 24 hr 06/20/19 06:22 06/20/19 07:05 06/20/19 07:30 Temperature 36.4 C L Temperature Source Oral Pulse Rate 60 66 Pulse Rate [Apical] 62 Pulse Rhythm Regular Pulse Rhythm [Apical] Regular Respiratory Rate 18 18 Respiratory Effort / Characteristics Non-Labored Spontaneous Respiratory Depth Normal Normal Respiratory Pattern Regular Blood Pressure 148/81 H Blood Pressure [Right Arm] 152/84 H Blood Pressure Mean 103 Blood Pressure Mean [Right Arm] 106 Blood Pressure Position Lying Pulse Oximetry 92 97 94 Oxygen Delivery Method Room Air Room Air Room Air Sepsis Recent Fever Within 48 Hours No Sepsis New/Unexplained Change in Mental Status No Sepsis Action Taken by Nursing No Action Required Home Medications Current Medication List: was personally reviewed by me Laboratory Data Attestation: I reviewed the patient's lab results. Result diagrams: 06/20/19 06:26 06/20/19 06:26 Lab Results 06/20/19 06/20/19 06/20/19 Range/Units 06:26 06:26 08:10 WBC 8.54 (4.8-10.8) K/uL RBC 4.97 (4.7-6.1) M/uL Hgb 15.7 (14.0-18.0) g/dL Hct 44.8 (42-52) % MCV 90.1 (80-100) fL MCH 31.6 (25-34) pg MCHC 35.0 (32-36) g/dL RDW Std Deviation 42.3 (36.4-46.3) fL RDW Coeff of Clotilde 12.9 (11.5-14.5) % Plt Count 200 (130-400) K/uL MPV 10.8 H (7.4-10.4) fL Immature Gran % (Auto) 0.1 % Neut % (Auto) 62.1 % Lymph % (Auto) 28.8 % Sutter % (Auto) 8.0 % Eos % (Auto) 0.8 % Baso % (Auto) 0.2 % Immature Gran # (Auto) 0.01 (0.00-0.02) K/uL Neut # (Auto) 5.30 (1.4-6.5) K/uL Lymph # (Auto) 2.46 (1.2-3.4) K/uL Sutter # (Auto) 0.68 H (0.11-0.59) K/uL Eos # (Auto) 0.07 (0-0.5) K/uL Baso # (Auto) 0.02 (0-0.2) K/uL Sodium 138 (136-145) mmol/L Potassium 3.7 (3.5-5.1) mmol/L Chloride 105 (98-107) mmol/L Carbon Dioxide 26 (21-32) mmol/L Anion Gap 7.0 (3-11) BUN 17 (7-18) mg/dl Creatinine 0.98 (0.6-1.4) mg/dl Est Cr Clr Drug Dosing 81.3 ml/min Est GFR ( Amer) 91.4 Est GFR (Non-Af Amer) 78.9 BUN/Creatinine Ratio 17.1 (10-20) Glucose 211 H (70-99) mg/dl Calcium 8.5 (8.5-10.1) mg/dl Magnesium 1.7 L (1.8-2.4) mg/dl Total Bilirubin 1.1 H (0.2-1) mg/dl AST 30 (15-37) U/L ALT 37 (12-78) U/L Alkaline Phosphatase 55 (45-117) U/L Troponin I < 0.015 (0-0.045) ng/ml Total Protein 7.2 (6.4-8.2) gm/dl Albumin 3.3 L (3.4-5.0) gm/dl Globulin 3.9 (2.5-4.0) gm/dl Albumin/Globulin Ratio 0.8 L (0.9-2) Lipase 196 (73-393) U/L Urine Color Yellow Urine Appearance Clear (Clear) Urine pH 5.5 (4.5-7.5) Ur Specific [place] 1.025 (1.000-1.030) Urine Protein Negative (Negative) Urine Glucose (UA) 3+ H (Negative) Urine Ketones 3+ H (Negative) Urine Blood Negative (Negative) Urine Nitrite Negative (Negative) Urine Bilirubin Negative (Negative) Urine Urobilinogen Negative (Negative) Ur Leukocyte Esterase Negative (Negative) Administered Medications Discontinued Medications Sodium Chloride (Nss) 500 mls @ 999 mls/hr IV .Q31M [facility] Stop: 06/20/19 07:15 Last Infusion: 06/20/19 07:39 Dose: 0 mls/hr Documented by: [id number] Admin: 06/20/19 06:57 Dose: 999 mls/hr Documented by: [id number] Acetaminophen (Ofirmev) 1,000 mg in 100 mls @ 400 mls/hr IV NOW STA Stop: 06/20/19 06:53 Last Infusion: 06/20/19 07:13 Dose: 0 mls/hr Documented by: [id number] Admin: 06/20/19 06:57 Dose: 400 mls/hr Documented by: [id number] Magnesium Sulfate/Dextrose (Magnesium Sulfate / D5w) 1 gm in 100 mls @ 100 mls/hr IV ONE ONE Stop: 06/20/19 08:04 Last Admin: 06/20/19 07:37 Dose: 100 mls/hr Documented by: [id number] Ketorolac Tromethamine (Toradol) 15 mg IV NOW STA Stop: 06/20/19 06:40 Last Admin: 06/20/19 06:57 Dose: 15 mg Documented by: [id number] Ondansetron HCl (Zofran) 4 mg IV NOW STA Stop: 06/20/19 06:40 Last Admin: 06/20/19 06:57 Dose: 4 mg Documented by: [id number] Imaging Data Radiologist's Impression: US gallbladder CLINICAL HISTORY: 68 years-old Male presenting with ruq pain. TECHNIQUE: Real-time grayscale and limited color Doppler ultrasound imaging of the abdomen limited to the right upper quadrant was performed. COMPARISON: CT from 08/01/2017 and ultrasound from 02/04/2017. FINDINGS: Pancreas: Visualized portions of the pancreatic head and body normal. Liver: Moderately hyperechogenic parenchyma with partial obscuration of the right hemidiaphragm, likely indicating moderate steatosis. The liver measures 17.1 cm in maximal sagittal dimension. No sonographic evidence of hepatic mass. Main portal vein patent with normal directional flow. Biliary: No intrahepatic biliary ductal dilatation. Common bile duct measures up to 6 mm in diameter. Gallbladder: Gallstones and gallbladder sludge. Top normal wall thickness measuring 3 mm. No pathologic distention or pericholecystic fluid or inflammatory change. Unable to assess sonographic Bañuelos's sign. Right kidney: Normal in appearance without evidence of hydronephrosis. Ascites: None. Other: None. IMPRESSION: 1. Cholelithiasis and gallbladder sludge with borderline wall thickening. The history of pain medication administration in the emergency room limits evaluation for a sonographic Bañuelos's sign. Equivocal findings for cholecystitis given absence of pathologic distention or pericholecystic fluid or inflammatory change. If there is concern for this diagnosis, nuclear medicine HIDA scan could be obtained. 2. Hepatic steatosis. Correlate with liver function tests to exclude steatohepatitis as a cause for abdominal pain. XR chest 1V portable CLINICAL HISTORY: 68 years-old Male presenting with epigastric pain. TECHNIQUE: Portable upright AP view of the chest was obtained. COMPARISON: 08/01/2017. FINDINGS: Median sternotomy wires and mediastinal surgical clips. Coronary artery bypass graft ring noted. Atherosclerosis of the aortic arch. Cardiac silhouette moriah rderline enlarged. Mild prominence of upper lobe vasculature. Mildly low lung volumes. Interval linear opacity in the left midlung unchanged. No new focal opacity. No large effusion or pneumothorax. Degenerative changes of the thoracic spine. Degenerative changes of the AC joints. Upper abdomen normal. IMPRESSION: 1. Borderline cardiomegaly with questionable mild volume overload. 2. Mildly low lung volumes. Blood Pressure Blood Pressure Findings: Elevated blood pressure Blood Pressure Disposition: further management by hospitalist Discharge Plan Visit Data Chief Complaint: Abdominal Pain Stated Complaint: ABDOMINAL PAIN ED Provider: Frankie Montero Discharge Problem: Acute cholecystitis, Vomiting, Hypomagnesemia Patient Disposition: Being Evaluated by Hospitalist Condition: Good Forms Stand Alone Forms: [employer] Prescriptions Prescriptions: No Action atorvastatin 40 mg Tablet 40 mg PO HS RF: 0 aspirin 81 mg Tablet,Delayed Release (Dr/Ec) 81 mg PO BID RF: 0 metformin 1,000 mg tablet 1,000 mg PO BIDM RF: 0 losartan 25 mg Tablet 25 mg PO HS RF: 0 metoprolol tartrate 50 mg tablet 75 mg PO BID RF: 0 Referrals Referrals: Colton Joseph MD [Primary Care Provider] - Discharge Problem: Vomiting Qualifiers: Vomiting type: unspecified Vomiting Intractability: non-intractable Nausea pre sence: with nausea Qualified Code(s): R11.2 - Nausea with vomiting, unspecified
[2019-06-20] MEDS ORDERED: SODIUM CHLORIDE 0.9% 500 ML IV SCH (06:45)
[2019-06-20 06:57] LABS: Basophils # (auto) 0.02 K/uL (0-0.2); Basophils % (auto) 0.2 %; Eosinophils # (auto) 0.07 K/uL (0-0.5); Eosinophils % (auto) 0.8 %; Hematocrit (blood only) 44.8 % (42-52); Hemoglobin 15.7 g/dL (14.0-18.0); Immature Granulocytes # (auto) 0.01 K/uL (0.00-0.02); Immature Granulocytes % (auto) 0.1 %; Lymphocytes # (auto) 2.46 K/uL (1.2-3.4); Lymphocytes % (auto) 28.8 %; Mean Corpuscular Hemoglobin 31.6 pg (25-34); Mean Corpuscular Volume 90.1 fL (80-100); Mean Platelet Volume 10.8 fL (7.4-10.4); Monocytes # (auto) 0.68 K/uL (0.11-0.59); Neutrophils % (auto) 62.1 %; Platelet Count 200 K/uL (130-400); RDW Coefficient of Variation 12.9 % (11.5-14.5); RDW Standard Deviation 42.3 fL (36.4-46.3); Red Blood Count 4.97 M/uL (4.7-6.1); White Blood Count 8.54 K/uL (4.8-10.8)
--- NOTE | 2019-06-20 07:02 | XRay Report ---
XR chest 1V portable CLINICAL HISTORY: 68 years-old Male presenting with epigastric pain. TECHNIQUE: Portable upright AP view of the chest was obtained. COMPARISON: 08/01/2017. FINDINGS: Median sternotomy wires and mediastinal surgical clips. Coronary artery bypass graft ring noted. Athe rosclerosis of the aortic arch. Cardiac silhouette borderline enlarged. Mild prominence of upper lobe vasculature. Mildly low lung volumes. Interval linear opacity in the left midlung unchanged. No new focal opacity. No large effusion or pneumothorax. Degenerative changes of the thoracic spine. Degener ative changes of the AC joints. Upper abdomen normal. IMPRESSION: 1. Borderline cardiomegaly with questionable mild volume overload. 2. Mildly low lung volumes. ACT 112: Negative or not required by law. Electronically signed by: Reji López M.D. 06/20/2019 7:01 AM
[2019-06-20 07:03] LABS: Alanine Aminotransferase 37 U/L (12-78); Albumin Level 3.3 gm/dl (3.4-5.0); Aspartate Aminotransferase 30 U/L (15-37); BUN Creatinine Ratio 17.1 (10-20); Blood Urea Nitrogen 17 mg/dl (7-18); Calcium 8.5 mg/dl (8.5-10.1); Carbon Dioxide 26 mmol/L (21-32); Chloride 105 mmol/L (98-107); Creatinine Clr Calc Pharmacy 81.3 ml/min; Est GFR (African American) 91.4; Est GFR (Non-African American) 78.9; Glucose 211 mg/dl (70-99); Lipase 196 U/L (73-393); Magnesium 1.7 mg/dl (1.8-2.4); Potassium 3.7 mmol/L (3.5-5.1); Sodium 138 mmol/L (136-145)
[2019-06-20] MEDS ORDERED: MAGNESIUM SULFATE / D5W 1 GM/100 ML BAG IV ONE (07:05)
[2019-06-20 07:08] LABS: Albumin Globulin Ratio 0.8 (0.9-2); Alkaline Phosphatase 55 U/L (45-117); Bilirubin,Total 1.1 mg/dl (0.2-1); Globulin 3.9 gm/dl (2.5-4.0); Total Protein 7.2 gm/dl (6.4-8.2); Troponin I < 0.015 ng/ml (0-0.045)
--- NOTE | 2019-06-20 07:31 | Ultrasound Report ---
US gallbladder CLINICAL HISTORY: 68 years-old Male presenting with ruq pain. TECHNIQUE: Real-time grayscale and limited color Doppler ultrasound imaging of the abdomen limited to the right upper quadrant was performed. COMPARISON: CT from 08/01/2017 and ultrasound from 02/04/2017. FINDINGS: Pancreas: Visualized portions of the pancreatic head and body normal. Liver: Moderately hyperechogenic parenchyma with partial obscuration of the right hemidiaphragm, like ly indicating moderate steatosis. The liver measures 17.1 cm in maximal sagittal dimension. No sonogr aphic evidence of hepatic mass. Main portal vein patent with normal directional flow. Biliary: No intrahepatic biliary ductal dilatation. Common bile duct measures up to 6 mm in diameter. Gallbladder: Gallstones and gallbladder sludge. Top normal wall thickness measuring 3 mm. No patholog ic distention or pericholecystic fluid or inflammatory change. Unable to assess sonographic Bañuelos's sign. Right kidney: Normal in appearance without evidence of hydronephrosis. Ascites: None. Other: None. IMPRESSION: 1. Cholelithiasis and gallbladder sludge with borderline wall thickening. The history of pain medica tion administration in the emergency room limits evaluation for a sonographic Bañuelos's sign. Equivoca l findings for cholecystitis given absence of pathologic distention or pericholecystic fluid or infla mmatory change. If there is concern for this diagnosis, nuclear medicine HIDA scan could be obtained. 2. Hepatic steatosis. Correlate with liver function tests to exclude steatohepatitis as a cause for abdominal pain. ACT 112: Negative or not required by law. Electronically signed by: Reji López M.D. 06/20/2019 7:30 AM
[2019-06-20] MEDS ORDERED: cefOXitin 2,000 MG/60 ML BAG IV STA (07:49)
[2019-06-20 08:26] LABS: Appearance Urine Clear (Clear); Bilirubin Urine Negative (Negative); Blood Urine Negative (Negative); Color Urine Yellow; Glucose Urine UA 3+ (Negative); Ketones Urine 3+ (Negative); Leukocyte Esterase Urine Negative (Negative); Nitrite Urine Negative (Negative); Protein Urine Negative (Negative); Specific Gravity Urine 1.025 (1.000-1.030); Urobilinogen Urine Negative (Negative); pH Urine 5.5 (4.5-7.5)
--- NOTE | 2019-06-20 08:26 | Surgery Consultation ---
Date of Consultation June 20, 2019 Assessment & Plan (1) Acute cholecystitis: Plan for laparoscopic cholecystectomy, possible cholangiogram given mild bilirubin elevation. Will ask medicine to evaluate preop. as above. suspect symptoms are from cholecystitis. awaiting second troponin...if neg will proceed with lap/poss open cholecystectomy. discussed options/risks ( bleeding/infection/injury to another organ/dvt/pe/mi/ bile leaks /etc...). questions answered. History of Present Illness History of Present Illness 68 y/o male with RUQ pain nausea that began last night after eating a hoagie. He had similar symptoms on but improved a little over the weekend. Had seen Dr. Cardona in February for similar symptoms, decided to wait until after for surgery but had been feeling well until a few days ago. Allergies Allergy/AdvReac Type Severity Reaction Status Date / Time No Known Allergies Allergy Unverified 06/20/19 06:51 Home Medications Home Medications Medication Instructions Recorded Confirmed Type aspirin 81 mg PO QDD 06/20/19 06/20/19 History atorvastatin 40 mg PO HS 06/20/19 06/20/19 History losartan 25 mg PO HS 06/20/19 06/20/19 History metformin 1,000 mg PO BIDM 06/20/19 06/20/19 History metoprolol tartrate 75 mg PO BID 06/20/19 06/20/19 History Patient History Medical History CAD (coronary artery disease) (Chronic) Diabetes (Chronic) Dyslipidemia (Chronic) Glaucoma Hypertension (Chronic) Surgical History History of colonoscopy with polypectomy Hx of CABG 2013 at [facility] underwent a ARANA to LAD, vein graft obtuse marginal and distal RCA Tibial plateau fracture, right (Resolved) S/P ORIF Family History Father Diabetes Hypertension Brother Diabetes Social History Preferred Language: Kinyarwanda Communication Ability: Effective Beliefs That Will Affect Care: None Current Living Situation: Spouse Other Information That Helps Us Care for You: No Feels Safe at Home: Yes Safety Concerns: Feels Safe At This Time Smoking Status: Never smoker Hx Alcohol Use: No Hx Substance Use: No Review of Systems Constitutional: + chills and + sweats Gastrointestinal: + abdominal pain and + nausea; no vomiting Physical Exam Constitutional: WD/WN, vitals as above Respiratory: normal respiratory effort, lungs clear to auscultation Cardiovascular: RRR, no murmur, no edema Gastrointestinal (Abdomen): Inspection/Auscultation: abdomen not distended Percussion/Palpation: + abdomen tender (mild RUQ) and abdomen soft Results & Data Vital Signs (Past 12 Hours) Vital Signs Temp Pulse Pulse Resp BP BP Pulse Ox 06/20/19 07:30 62 18 152/84 H 94 06/20/19 07:05 66 97 06/20/19 06:22 36.4 C L 60 18 148/81 H 92 PG Care Time/CCT Total # of Minutes Spent Total Time Spent with Patient: Total time spent is greater than 50% in coordination of care (as documented) at patient's floor/unit and/or counseling patient: Coding Level of Care Code 13013 Initial Inpt Care Lvl 3 Diagnoses Acute cholecystitis K81.0
--- NOTE | 2019-06-20 09:25 | History & Physical Report ---
Date of Service June 20, 2019 Assessment & Plan (1) Acute cholecystitis: This is a 68-year-old male who has significant past medical history of CAD with history of CABG x3 in 2013, T2DM uncontrolled, HTN, HLD, bifascicular block, glaucoma, known cholelithiasis who presents to ED secondary to abdominal pain x12 hours. Pt with presentation of acute cholecystitis, mild T bili elevation otherwise LFT WNL Afebrile, no s/sx of SIRS/Sepsis per CMS guidelines Admit to medical Remain n.p.o. General surgery consult -plan for laparoscopic cholecystectomy with or without cholangiogram IV morphine 4 mg as needed for pain Continue IV antibiotics as per general surgery (2) CAD (coronary artery disease): Patient denies chest pain or shortness of breath History of CABG x3 in 2012 - ARANA to LAD, vein graft obtuse marginal and vein graft to distal RCA Recent nuclear stress test on 12/2018 which was negative for inducible ischemia EKG reviewed and compared to prior EKGs on 02/04/2017 and 08/01/2017, he does have known bifascicular block, new T wave inversion V3 and V4 (although V3 T wave inversion noted on ECG from 2017) We will repeat troponin at noon, if negative patient is medically cleared for surgery continue statin, losartan and coreg He did take ASA this morning but will hold until okay to resume by surgery (3) Hypomagnesemia: received 1g IV mag in ED repeat in a.m. (4) Diabetes: Uncontrolled, last A1c 9.5 on 11/2018 A1c in a.m. Hold metformin Lantus/NovoLog per protocol (5) Hypertension: blood pressure elevated, likely in setting of pain continue coreg, losartan monitor (6) Dyslipidemia: continue statin (7) DVT prophylaxis: SCD/TEDS for now given likely impending surgery Disposition: admit to med/surg Follow up: PCP Dr. Joseph upon discharge Pt was seen and examined in collaboration with Dr. Easley, please see addendum History of Present Illness Chief Complaint: Abdominal pain x12 hours. Primary Care Provider: Colton Joseph MD This is a 68-year-old male who has significant past medical history of CAD with history of CABG x3 in 2012, T2DM uncontrolled, HTN, HLD, bifascicular block, glaucoma, known cholelithiasis who presents to ED secondary to abdominal pain x12 hours. He states approximately 3 to 4 days ago he overall did not feel well with approximately 12 to 24 hours of nausea and vomiting overnight. Since then he has had a somewhat decreased appetite. Last evening he ate a sub from [employer] in approximately 1 to 2 hours after ingesting he developed significant right upper quadrant abdominal pain. Pain was constant, described as a dull ache, radiated to the back, 10/10 at its worst, tried Tums without relief. Had similar symptoms in past with prior, "gallbladder attacks." He states in February he had met with general surgeon Dr. Cardona to discuss elective cholecystectomy but had not yet scheduled. Throughout the night his pain became more severe and was not improving. It was associated with significant nausea, sweats and chills. Due to worsening of pain he called EMS. He was instructed to take baby aspirin and was brought to ED. Currently his pain is slightly improved to a 5/10 and nausea has resolved. He continues to feel unwell. Denies any documented fever, lightheadedness, dizziness, syncope, chest pain, shortness with, palpitations, NEELY, cough, hemoptysis, emesis, diarrhea, acholic stools, melena, hematochezia. Denies any dysuria, increased urgency or frequency with urination. His last bowel movement was this morning and was normal for him. He has not had anything to eat or drink yet this morning but he did take a baby aspirin as instructed by EMS. Of significance he does have T2DM on metformin. He did not take his metformin this morning and he does not monitor his blood sugars. Of significance patient does have history of CAD with history of CABG x3. This was done in 2012 and he underwent a ARANA to LAD, vein graft to obtuse marginal and to distal RCA. In 12/2018 he did undergo nuclear stress test which was negative for inducible ischemia and resting echo revealed EF 60%, grade 1 diastolic dysfunction, mild AV sclerosis. He was last seen by cardiology on 05/31/[address] Romero. He denies any exertional chest pain or NEELY. He feels he would be able to walk a flight of stairs or on a flat surface for several minutes without getting any chest pain or shortness of breath. 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 In ED patient was hemodynamically stable and afebrile. Lab work revealed WBC 8.54, H&H 15.7 and 44.8, platelet 200, K3.7, BUN 17, creatinine 0.98, glucose 211, mag 1.7, T bili 1.1, LFTs WNL, troponin WNL, lipase WNL. Gallbladder ultrasound revealed Cholelithiasis and gallbladder sludge with borderline wall thickening, hepatic steatosis. Chest x-ray revealed Borderline cardiomegaly with questionable mild volume overload, mildly low lung volumes. EKG revealed normal sinus rhythm with rate of 60/min, known bifascicular block, T wave inversions now noted in V3 and V4. EKG was compared to EKG from 02/04/2017 and 08/01/2017. In ED he received IV fluid, IV Mefoxin, IV Zofran and 1 g IV magnesium. Allergies Allergy/AdvReac Type Severity Reaction Status Date / Time No Known Allergies Allergy Unverified 06/20/19 06:51 Home Medications Home Medications Medication Instructions Recorded Confirmed Type aspirin 81 mg PO QDD 06/20/19 06/20/19 History atorvastatin 40 mg PO HS 06/20/19 06/20/19 History losartan 25 mg PO HS 06/20/19 06/20/19 History metformin 1,000 mg PO BIDM 06/20/19 06/20/19 History metoprolol tartrate 75 mg PO BID 06/20/19 06/20/19 History Past Med/Surg History Medical History CAD (coronary artery disease) (Chronic) Diabetes (Chronic) Dyslipidemia (Chronic) Glaucoma Hypertension (Chronic) Surgical History History of colonoscopy with polypectomy Hx of CABG 2013 at [facility] underwent a ARANA to LAD, vein graft obtuse marginal and distal RCA Tibial plateau fracture, right (Resolved) S/P ORIF Family History Father Diabetes Hypertension Brother Diabetes Social History Preferred Language: Malagasy Communication Ability: Effective Beliefs That Will Affect Care: None Current Living Situation: Spouse Other Information That Helps Us Care for You: No Feels Safe at Home: Yes Safety Concerns: Feels Safe At This Time Smoking Status: Never smoker Hx Alcohol Use: No Hx Substance Use: No Review of Systems Review of Systems: All systems reviewed & are unremarkable except as noted in HPI & below Physical Exam Physical Exam: Constitutional: WD/WN, vitals as above, NAD, sitting up in bed, pleasant, conversing easily Head: Normocephalic, Atraumatic Eyes: PERRL, conjunctivae normal, anicteric sclerae ENMT: external ear and nose normal, oropharynx normal Neck: trachea midline, no thyromegaly normal visual inspection Respiratory: normal respiratory effort, lungs clear to auscultation, no wheeze, rales, rhonchi. Normal insp/exp effort, no accessory muscle use Cardiovascular: RRR, soft 1/6 GELY RUSB, no edema Vessels: no JVD or carotid bruit Chest: normal inspection of chest Abdomen: normal bowel sounds, soft, mild RUQ tenderness to palpation, no guarding, rigidity, no hepatosplenomegaly Musculoskeletal: no cyanosis or clubbing, extremities motor strength 5/5 Skin: no rashes, warm and dry normal turgor Neurologic: PERRL, EOMI, accommodation nl, no face palsy, no dysarthria CN's II-XI intact bilaterally and moves all extremities Psychiatric: A+Ox3, euthymic affect Lymphatic: no cervical or axillary lymphadenopathy : deferred Results & Data Vital Signs (Past 12 Hours) Vital Signs Temp Pulse Pulse Resp BP BP Pulse Ox 06/20/19 09:00 70 16 164/89 H 94 06/20/19 07:30 62 18 152/84 H 94 06/20/19 07:05 66 97 06/20/19 06:22 36.4 C L 60 18 148/81 H 92 Laboratory Results Short CBC 06/20/19 Range/Units 06:26 WBC 8.54 (4.8-10.8) K/uL Hgb 15.7 (14.0-18.0) g/dL Hct 44.8 (42-52) % Plt Count 200 (130-400) K/uL BMP 06/20/19 06:26 Sodium 138 Potassium 3.7 Chloride 105 Carbon Dioxide 26 BUN 17 Creatinine 0.98 Glucose 211 H Calcium 8.5 Cardiac Enzymes 06/20/19 Range/Units 06:26 Troponin I < 0.015 (0-0.045) ng/ml Liver Function 06/20/19 Range/Units 06:26 Total Bilirubin 1.1 H (0.2-1) mg/dl AST 30 (15-37) U/L ALT 37 (12-78) U/L Alkaline Phosphatase 55 (45-117) U/L Albumin 3.3 L (3.4-5.0) gm/dl Urine 06/20/19 Range/Units 08:10 Urine Color Yellow Urine Appearance Clear (Clear) Urine pH 5.5 (4.5-7.5) Ur Specific [place] 1.025 (1.000-1.030) Urine Protein Negative (Negative) Urine Glucose (UA) 3+ H (Negative) Diagnostic Findings Gallbladder U/S IMPRESSION: 1. Cholelithiasis and gallbladder sludge with borderline wall thickening. The history of pain medication administration in the emergency room limits evaluation for a sonographic Bañuelos's sign. Equivocal findings for cholecystitis given absence of pathologic distention or pericholecystic fluid or inflammatory change. If there is concern for this diagnosis, nuclear medicine HIDA scan could be obtained. 2. Hepatic steatosis. Correlate with liver function tests to exclude steatohepatitis as a cause for abdominal pain. CXR: IMPRESSION: 1. Borderline cardiomegaly with questionable mild volume overload. 2. Mildly low lung volumes. Medications Administered Discontinued Medications Sodium Chloride (Nss) 500 mls @ 999 mls/hr IV .Q31M ALEC Stop: 06/20/19 07:15 Last Infusion: 06/20/19 07:39 Dose: 0 mls/hr Documented by: [id number] Admin: 06/20/19 06:57 Dose: 999 mls/hr Documented by: [id number] Acetaminophen (Ofirmev) 1,000 mg in 100 mls @ 400 mls/hr IV NOW STA Stop: 06/20/19 06:53 Last Infusion: 06/20/19 07:13 Dose: 0 mls/hr Documented by: [id number] Admin: 06/20/19 06:57 Dose: 400 mls/hr Documented by: [id number] Magnesium Sulfate/Dextrose (Magnesium Sulfate / D5w) 1 gm in 100 mls @ 100 mls/hr IV ONE ONE Stop: 06/20/19 08:04 Last Infusion: 06/20/19 09:01 Dose: 0 mls/hr Documented by: [id number] Admin: 06/20/19 07:37 Dose: 100 mls/hr Documented by: [id number] Cefoxitin Sodium (Mefoxin) 2,000 mg in 60 mls @ 100 mls/hr IV NOW STA Stop: 06/20/19 08:24 Last Admin: 06/20/19 09:02 Dose: 100 mls/hr Documented by: [id number] Ketorolac Tromethamine (Toradol) 15 mg IV NOW STA Stop: 06/20/19 06:40 Last Admin: 06/20/19 06:57 Dose: 15 mg Documented by: [id number] Ondansetron HCl (Zofran) 4 mg IV NOW STA Stop: 06/20/19 06:40 Last Admin: 06/20/19 06:57 Dose: 4 mg Documented by: [id number] ECG Rate (beats per minute): 60 Findings: + LAFB, + RBBB and + T-wave inversion (V2, V3, V4) Code Status & VTE Plan Code Status Full Code VTE Prophylaxis Plan VTE Prophylaxis will be ordered: Yes Supervising Physician Co-Signing Physician Notes Attending addendum The patient was seen and examined in the medical floor He complains to have occasional feeling of bloated after food for a while He was admitted this morning with right upper quadrant pain associated with sweating and nausea since last night He has been feeling a little better since admission On examination Lying in bed with minimal discomfort secondary to right upper quadrant pain Hemodynamically stable Chestclear to auscultate bilaterally Heart S1, S2 regular Abdomensoft, mildly distended, right upper quadrant tenderness without any rebound and negative Bañuelos sign Extremitiestrace edema Admission labs and imaging studies noted Questionable EKG changes with right bundle branch block without any significant restriction activity or cardiac symptoms Has acute cholecystitis-surgery consulted There is no contraindication for proposed surgery given the second set of troponin remains unremarkable Agree with assessment and plan as outlined above by PAVAN Abarca DR
--- NOTE | 2019-06-20 09:45 | Anesthesiology Consultation ---
Date of Service June 20, 2019 Assessment & Plan (1) Encounter for pre-operative examination: Chart Review Chart Review: Acceptable Risk for Surgery History Surgery Operation Date: 06/20/19 10:05 Proposed Procedures p Laparoscopic Cholecystectomy, Possible Cholangiogram - Chan Mary, Height/Weight Height: 5 ft 7 in Weight: 100 kg Allergies Allergy/AdvReac Type Severity Reaction Status Date / Time No Known Allergies Allergy Unverified 06/20/19 06:51 Medications Home Medications Medication Instructions Recorded Confirmed Last Taken aspirin 81 mg PO QDD 06/20/19 06/20/19 06/19/19 atorvastatin 40 mg PO HS 06/20/19 06/20/19 06/19/19 losartan 25 mg PO HS 06/20/19 06/20/19 06/19/19 metformin 1,000 mg PO BIDM 06/20/19 06/20/19 06/19/19 metoprolol tartrate 75 mg PO BID 06/20/19 06/20/19 06/20/19 Past Medical History Medical History CAD (coronary artery disease) (Chronic) Diabetes (Chronic) Dyslipidemia (Chronic) Glaucoma Hypertension (Chronic) Past Family History Family History Father Diabetes Hypertension Brother Diabetes Past Surgical History Surgical History History of colonoscopy with polypectomy Hx of CABG 2012 at [facility] underwent a AARNA to LAD, vein graft obtuse marginal and distal RCA Tibial plateau fracture, right (Resolved) S/P ORIF Social History Smoking Status: Never smoker Hx Alcohol Use: No Hx Substance Use: No Physical Exam Vital Signs Last Vital Signs Temp 36.4 C L 06/20/19 06:22 Pulse 70 06/20/19 09:00 Resp 16 06/20/19 09:00 BP 164/89 H 06/20/19 09:00 Pulse Ox 94 06/20/19 09:00 Testing Laboratory Results 06/20/19 06:26 06/20/19 06:26 Urine Color Yellow 06/20/19 08:10 Urine Appearance Clear (Clear) 06/20/19 08:10 Urine pH 5.5 (4.5-7.5) 06/20/19 08:10 Ur Specific [place] 1.025 (1.000-1.030) 06/20/19 08:10 Urine Protein Negative (Negative) 06/20/19 08:10 Urine Glucose (UA) 3+ (Negative) H 06/20/19 08:10 Urine Ketones 3+ (Negative) H 06/20/19 08:10 Urine Nitrite Negative (Negative) 06/20/19 08:10 Ur Leukocyte Esterase Negative (Negative) 06/20/19 08:10 06/20/19 09:07 POC Glucose 252 H Electrocardiogram Date: 06/20/19 Findings: + NSR @ (60) and + RBBB (and left ant fasc block) Chest X-Ray Date: 06/20/19 Findings: + cardiomegaly (mild) and + pulmonary vascular congestion (possible mild)
[2019-06-20] MEDS ORDERED: SODIUM CHLORIDE 0.9% 1000ML 1,000 ML IV SCH (09:49)
[2019-06-20] MEDS ORDERED: DEXTROSE 50% 50 ML SYRINGE IV PRN (09:49)
[2019-06-20] MEDS ORDERED: PROPOFOL IV EMULSION 10 MG/ML 20 ML VIAL IV ONE ×2 (09:49→12:27)
[2019-06-20] MEDS ORDERED: GLUCOSE 40% GEL 15 GM TUBE PO PRN (09:49)
[2019-06-20] MEDS ORDERED: ALUMINUM/MAGNESIUM SUSP 30 ML UDC PO PRN (09:49)
[2019-06-20] MEDS ORDERED: LIDOCAINE HCL 2% 2 ML VIAL/AMP(20MG/ML) INFIL ONE ×2 (09:49→12:27)
[2019-06-20] MEDS ORDERED: GLYCOPYRROLATE 0.2 MG/ML VIAL ONE ×2 (09:49→15:01)
[2019-06-20] MEDS ORDERED: GLUCOSE 10 TABS/TUBE PO PRN (09:49)
[2019-06-20] MEDS ORDERED: ROCURONIUM BROMIDE 10 MG/ML 5 ML VIAL ONE ×2 (09:49→12:27)
[2019-06-20] MEDS ORDERED: SUCCINYLCHOLINE CHLORIDE 20 MG/ML 10 ML VIAL ONE (09:49)
[2019-06-20] MEDS ORDERED: ONDANSETRON INJ 2 MG/ML 2 ML VIAL ONE ×2 (09:49→12:27)
[2019-06-20] MEDS ORDERED: GLUCAGON FOR INJ 1 MG VIAL SQ PRN (09:49)
[2019-06-20] MEDS ORDERED: ACETAMINOPHEN 325 MG TAB PO PRN (09:49)
[2019-06-20] MEDS ORDERED: CARBOHYDRATES FOR HYPOGLYCEMIA PO PRN (09:49)
[2019-06-20] MEDS ORDERED: ONDANSETRON INJ 2 MG/ML 2 ML VIAL IV PRN ×2 (09:49→13:11)
[2019-06-20] MEDS ORDERED: BUPIVACAINE/EPINEPHRINE 0.5% MPF 1:200,000 10 ML VIAL ONE (09:49)
[2019-06-20] MEDS ORDERED: NEOSTIGMINE METHYLSULFATE 5 MG/5 ML SYR ONE ×2 (09:49→15:01)
[2019-06-20] MEDS ORDERED: MoRPHine SULFATE 4 MG/ML 1 ML CARP\\VIAL IV PRN ×2 (09:49→15:51)
[2019-06-20] MEDS ORDERED: MIDAZOLAM HCL 1 MG/ML 2ML VIAL ONE (09:50)
[2019-06-20] MEDS ORDERED: fentaNYL citrate 100 MCG/2 ML VIAL ONE ×2 (09:50→12:27)
[2019-06-20] MEDS: METOPROLOL TARTRATE 25 MG TAB PO SCH ×2 (11:24→21:23)
[2019-06-20] MEDS ORDERED: fentaNYL citrate 100 MCG/2 ML VIAL IV PRN (13:11)
[2019-06-20] MEDS ORDERED: ATROPINE SULFATE 0.1 MG/ML 10ML SYR IV PRN (13:11)
[2019-06-20] MEDS ORDERED: ePHEDrine sulfate 50 MG/ML AMP IV PRN (13:11)
[2019-06-20] MEDS: INSULIN GLARGINE SOLOSTAR 100 UNITS/ML 3 ML PEN SC SCH ×2 (13:12→21:24)
[2019-06-20] MEDS: INSULIN ASPART 100 UNITS/ML 3 ML PEN SC SCH ×3 (13:12→21:24)
[2019-06-20] MEDS ORDERED: PHENYLEPHRINE 100MCG/ML 5ML SYR ONE (13:33)
[2019-06-20] MEDS ORDERED: cefOXitin 2,000 MG in DEXTROSE 5% 50 ML IV STA (13:46)
--- NOTE | 2019-06-20 14:43 | Operative Report ---
[facility] Post Operative Report Pre & Post Diagnosis Operation Date: 06/20/19 10:05 Pre-Op Diagnosis: cholecystitis Post-Op Diagnosis: acute cholecystitits I identified the patient and participated in the time-out.: Yes Procedure Operation Date: 06/20/19 10:05 Actual Procedures p Laparoscopic Cholecystectomy - Chan Mary DO Surgeon Chan Mary DO Floor Covering Installer hector Pelaez Estimated Blood Loss 10 Findings Consistent with Post-Op Diagnosis Specimens gallbladder Description of Procedure After informed consent was obtained the patient was taken to the operating room and placed in the supine position. After successful intubation the abdomen was sterilely prepped and draped in usual fashion. A periumbilical incision was made with an 11 blade scalpel and carried down through the soft tissue using electrocautery. The anterior rectus fascia was opened using electrocautery and 2 #0 Vicryl stay sutures were placed. The peritoneum was elevated with hemostats and incised under direct vision using Metzenbaum scissors. A finger sweep was performed and a 12 mm Herrera trocar was placed. The abdomen was insufflated to 18 mmHg. The laparoscope was inserted and the abdomen was examined in 360. The liver was held by adhesions to the anterior surface of the abdominal wall exposing the gallbladder. The gallbladder was acutely inflamed. A subxiphoid 5 mm port and 2 right upper quadrant 5 mm ports were placed under direct vision. The patient was placed in a reverse Trendelenburg position and slightly airplaned to the left. Initially the gallbladder was too inflamed to grasp, I therefore used a gallbladder needle to drain about 10 to 15 cc of dark-colored bile. Next, the gallbladder was grasped and elevated superiorly and laterally. A [place] dissector was used to take down adhesions around the neck of the gallbladder. The cystic duct was identified and skeletonized. It was it was rather inflamed and therefore I did not feel a clip would be adequate so I exchanged the subxiphoid 5 mm port for a 12 mm port and used a JUAN DIEGO brown cartridge 45 mm stapler to transect the cystic duct. In similar fashion the cystic artery was identified and skeletonized clipped (with a 5 mm clip wheel and axle inspector) and divided. The gallbladder was removed from the gallbladder fossa with electrocautery. During this process there was a small hole made inadvertently in the gallbladder releasing some stones and bile into the right upper quadrant. It was placed into an Endo Catch bag. Next I used a stone forcep to remove all of the visible gallstones. I also used the large suction device to suction out any additional debris. Thorough irrigation was performed. At the end of the procedure there was adequate hemostasis and no evidence of any bile leaks. A final look around the abdomen showed no other abnormalities. The gallbladder and trochars were all removed and the abdomen was desufflated. The fascia of the camera port was closed using 0 Vicryl in a [id number] fashion. All the wounds were irrigated and closed using 4-0 Monocryl. Marcaine was injected around them for postoperative analgesia and skin glue used as a dressing. The patient was awaken extubated and transferred to recovery in stable condition. My physician's special event assistant was present throughout the entire case... helped with prepping the patient. With exposure for trocar placement, as well as retracted the gallbladder throughout the case and also assisted with wound closure and dressing placement. I attest to the content of the Intraoperative Record and any orders documented therein. Any exceptions are noted below.
--- NOTE | 2019-06-20 15:24 | Anesthesiology Progress Note ---
Date of Service June 20, 2019 Anesthesia Post Procedure Vital Signs Vital Signs: Temp Pulse Pulse Pulse Resp BP BP 06/20/19 15:10 63 16 126/69 06/20/19 15:00 68 19 138/80 06/20/19 14:50 97.5 F L 80 13 151/81 H 06/20/19 13:09 97.5 F L 61 18 06/20/19 11:26 86 06/20/19 09:40 98.4 F 86 18 06/20/19 09:00 70 16 06/20/19 07:30 62 18 06/20/19 07:05 66 06/20/19 06:22 97.5 F L 60 18 148/81 H BP Pulse Ox 06/20/19 15:10 99 06/20/19 15:00 99 06/20/19 14:50 98 06/20/19 13:09 120/67 06/20/19 11:26 131/75 06/20/19 09:40 144/80 H 96 06/20/19 09:00 164/89 H 94 06/20/19 07:30 152/84 H 94 06/20/19 07:05 97 06/20/19 06:22 92 Pain Intensity Right Upper Abdomen: Pain Intensity: 5 Abdomen: Pain Intensity: 0 Transfer of Care Handoff Completed per policy Notes Mental Status: alert / awake / arousable and participated in evaluation Patient Amnestic to Procedure: Yes Nausea / Vomiting: adequately controlled Pain: adequately controlled Airway Patency, RR, SpO2: stable & adequate BP & HR: stable & adequate Hydration State: stable & adequate Anesthetic Complications: no major complications apparent and Pt Satisfied with anesthetic care
[2019-06-20] MEDS ORDERED: HYDROCODONE/ACETAMOPHEN 5/325MG TAB PO PRN (15:51)
[2019-06-20] MEDS ORDERED: MoRPHine SULFATE 2 MG/ML CARP IV PRN (15:51)
[2019-06-20] MEDS: LACTATED RINGER'S 1,000 ML IV SCH (16:12)
--- NOTE | 2019-06-20 16:23 | Electrocardiogram Report ---
Test Reason : Blood Pressure : / mmHG Vent. Rate : 060 BPM Atrial Rate : 060 BPM P-R Int : 150 ms QRS Dur : 154 ms QT Int : 474 ms P-R-T Axes : 045 -57 -23 degrees QTc Int : 474 ms Normal sinus rhythm Right bundle branch block Left anterior fascicular block Bifascicular block Moderate voltage criteria for LVH, may be normal variant Abnormal ECG When compared with ECG of 01-AUG-2017 18:27, T wave inversion now evident in Anterior leads Confirmed by Jaylen Ga ([id number]) on 06/20/2019 4:23:25 PM Referred By: REFERRED SELF Confirmed By:Que Ga
[2019-06-20] MEDS: CEFAZOLIN 2000MG 2,000 MG/15 ML SYR IV SCH ×2 (16:47→23:25)
[2019-06-20] MEDS ORDERED: LOSARTAN POTASSIUM 25 MG TAB PO SCH (21:00)
[2019-06-20] MEDS ORDERED: ATORVASTATIN 40 MG TAB PO SCH (21:00)
[2019-06-20] MEDS: HYDROCODONE/ACETAMOPHEN 5/325MG TAB PO PRN (23:32)
[2019-06-21] MEDS: LACTATED RINGER'S 1,000 ML IV SCH (03:24)
[2019-06-21 05:51] LABS: Basophils # (auto) 0.02 K/uL (0-0.2); Basophils % (auto) 0.2 %; Eosinophils # (auto) 0.07 K/uL (0-0.5); Eosinophils % (auto) 0.7 %; Hematocrit (blood only) 39.8 % (42-52); Hemoglobin 13.3 g/dL (14.0-18.0); Immature Granulocytes # (auto) 0.02 K/uL (0.00-0.02); Immature Granulocytes % (auto) 0.2 %; Lymphocytes # (auto) 2.99 K/uL (1.2-3.4); Lymphocytes % (auto) 30.8 %; Mean Corpuscular Hemoglobin 29.6 pg (25-34); Mean Corpuscular Hgb Conc 33.4 g/dL (32-36); Mean Corpuscular Volume 88.6 fL (80-100); Mean Platelet Volume 10.4 fL (7.4-10.4); Monocytes # (auto) 1.04 K/uL (0.11-0.59); Monocytes % (auto) 10.7 %; Neutrophils # (auto) 5.58 K/uL (1.4-6.5); Neutrophils % (auto) 57.4 %; Platelet Count 194 K/uL (130-400); Red Blood Count 4.49 M/uL (4.7-6.1); White Blood Count 9.72 K/uL (4.8-10.8)
[2019-06-21 06:02] LABS: Estimated Average Glucose 177 mg/dl; Hemoglobin A1C 7.8 % (4.5-5.6)
[2019-06-21 06:24] LABS: Albumin Level 2.8 gm/dl (3.4-5.0); BUN Creatinine Ratio 11.5 (10-20); Calcium 7.8 mg/dl (8.5-10.1); Creatinine Clr Calc Pharmacy 78.1 ml/min; Est GFR (African American) 87.1; Est GFR (Non-African American) 75.2; Potassium 3.6 mmol/L (3.5-5.1)
[2019-06-21 06:31] LABS: Bilirubin Direct 0.2 mg/dl (0-0.2); Bilirubin,Total 1.1 mg/dl (0.2-1)
--- NOTE | 2019-06-21 07:30 | Surgery Progress Note ---
Date of Service June 21, 2019 Assessment & Plan (1) Acute cholecystitis: POD#1 laparoscopic cholecystectomy WBC 9.7 and patient afebrile LFTs show Tbili: 1.1 (1.1), Dbili: 0.2, ALT: 45, AST: 48, Alkp: 52 Tolerated liquids yesterday- will advance diet as tolerates this AM Pain managed with prn pain medications Okay to resume baby aspirin Will evaluate patient later this AM with Dr. Mary and he will likely be able to be discharged later today pending medicine clearance as above. doing well. tolerating regular diet labs reviewed ok for d/c from my standpoint. instructions reviewed. Subjective Patient feeling okay this AM. Has some mild discomfort in the abdomen, but is overall much better than yesterday. He is tolerating liquids without issue. Denies n/v. Physical Exam Physical Exam: awake/alert Constitutional: well developed and well nourished; no acute distress Respiratory: normal respiratory effort Gastrointestinal (Abdomen): Inspection/Auscultation: + abdominal surgical incision (c/d/i with dermabond overtop) Percussion/Palpation: + abdomen tender (some mild ttp sangeeta-incisionally) and abdomen soft Results & Data Vital Signs (Past 12 Hours) Vital Signs Temp Pulse Resp BP Pulse Ox 06/21/19 04:02 36.8 C 64 20 105/63 95 06/20/19 23:41 36.9 C 65 20 137/77 97 06/20/19 21:22 36.7 C 66 156/76 H PG Care Time/CCT Total # of Minutes Spent Total Time Spent with Patient: Total time spent is greater than 50% in coordination of care (as documented) at patient's floor/unit and/or counseling patient: Coding Level of Care Code None Diagnoses Acute cholecystitis K81.0
[2019-06-21] MEDS: METOPROLOL TARTRATE 25 MG TAB PO SCH (08:58)
[2019-06-21] MEDS ORDERED: ASPIRIN 81 MG ECTAB PO SCH (09:00)
[2019-06-21] MEDS: INSULIN GLARGINE SOLOSTAR 100 UNITS/ML 3 ML PEN SC SCH (09:00)
[2019-06-21] MEDS: INSULIN ASPART 100 UNITS/ML 3 ML PEN SC SCH ×2 (09:01→12:49)
[2019-06-21] MEDS: CEFAZOLIN 2000MG 2,000 MG/15 ML SYR IV SCH (09:13)
--- NOTE | 2019-06-21 10:06 | Anesthesiology Progress Note ---
Date of Service June 21, 2019 Anesthesia Post Procedure Vital Signs Vital Signs: Temp Pulse Pulse Pulse Resp BP BP 06/21/19 08:58 78 132/70 06/21/19 07:15 36.9 C 59 L 16 124/66 06/21/19 04:02 36.8 C 64 20 105/63 06/20/19 23:41 36.9 C 65 20 137/77 06/20/19 21:22 36.7 C 66 156/76 H 06/20/19 19:17 36.7 C 72 18 133/74 06/20/19 17:49 36.6 C 67 18 134/77 06/20/19 16:49 36.8 C 64 18 126/71 06/20/19 16:22 36.6 C 61 18 125/70 06/20/19 15:50 36.9 C 67 18 128/69 06/20/19 15:40 36.1 C L 61 17 120/60 06/20/19 15:30 36.1 C L 58 L 17 118/62 06/20/19 15:20 36.1 C L 62 18 119/65 06/20/19 15:10 63 16 126/69 06/20/19 15:00 68 19 138/80 06/20/19 14:50 36.4 C L 80 13 151/81 H 06/20/19 13:09 36.4 C L 61 18 120/67 06/20/19 11:26 86 131/75 Pulse Ox 06/21/19 08:58 06/21/19 07:15 94 06/21/19 04:02 95 06/20/19 23:41 97 06/20/19 21:22 06/20/19 19:17 96 06/20/19 17:49 96 06/20/19 16:49 95 06/20/19 16:22 93 06/20/19 15:50 93 06/20/19 15:40 94 06/20/19 15:30 95 06/20/19 15:20 95 06/20/19 15:10 99 06/20/19 15:00 99 06/20/19 14:50 98 06/20/19 13:09 06/20/19 11:26 Pain Intensity Right Upper Abdomen: Pain Intensity: 5 Abdomen: Pain Intensity: 4 Notes Mental Status: alert / awake / arousable Patient Amnestic to Procedure: Yes Nausea / Vomiting: adequately controlled Pain: adequately controlled Airway Patency, RR, SpO2: stable & adequate BP & HR: stable & adequate Hydration State: stable & adequate Anesthetic Complications: no major complications apparent
[2019-06-21] MEDS: HYDROCODONE/ACETAMOPHEN 5/325MG TAB PO PRN ×2 (12:28→17:07)
--- NOTE | 2019-06-21 12:36 | Hospitalist Progress Note ---
Date of Service June 21, 2019 Assessment & Plan (1) Acute cholecystitis: This is a 68-year-old male who has significant past medical history of CAD with history of CABG x3 in 2013, T2DM uncontrolled, HTN, HLD, bifascicular block, glaucoma, known cholelithiasis who presents to ED secondary to abdominal pain x12 hours. Pt with presentation of acute cholecystitis, mild T bili elevation otherwise LFT WNL Afebrile, no s/sx of SIRS/Sepsis per CMS guidelines Status post laparoscopic cholecystectomy, POD #1 Appreciate surgery input and recommendation Symptomatically much better following surgery Likely be discharged this afternoon-we will await for surgery recommendation Has been getting cefazolin since yesterday-we will ask surgery team if any antibiotic needs to be continued on discharge (2) CAD (coronary artery disease): Patient denies chest pain or shortness of breath History of CABG x3 in 2013 - ARANA to LAD, vein graft obtuse marginal and vein graft to distal RCA Recent nuclear stress test on 12/2018 which was negative for inducible ischemia EKG reviewed and compared to prior EKGs on 02/04/2017 and 08/01/2017, he does have known bifascicular block, new T wave inversion V3 and V4 (although V3 T wave inversion noted on ECG from 2017) We will repeat troponin at noon, if negative patient is medically cleared for surgery continue statin, losartan and coreg He did take ASA this morning but will hold until okay to resume by surgery No cardiac symptoms (3) Hypomagnesemia: Magnesium was 1.7 on admission Received 1g IV mag in ED (4) Diabetes: Uncontrolled, last A1c 9.5 on 11/2018 A1c in a.m.-7.8 Hold metformin Lantus/NovoLog per protocol (5) Hypertension: blood pressure elevated, likely in setting of pain continue coreg, losartan monitor (6) Dyslipidemia: continue statin (7) DVT prophylaxis: SCD/TEDS for now given likely impending surgery Disposition: admit to med/surg Follow up: PCP Dr. Joseph upon discharge Likely be discharged this afternoon Admission and Anticipated Discharge Date Admission Date: June 20, 2019 Subjective 06/21/2019 The patient was seen and examined in medical floor He is a status post laparoscopic cholecystectomy, POD #1 He complains of minimal pain in the abdomen and has been tolerating diet Denies any other symptoms Review of Systems Review of Systems: All systems reviewed and are unremarkable except as noted below Gastrointestinal: + abdominal pain and + nausea; no vomiting Physical Exam Physical Exam: Lying in bed comfortably Constitutional: well developed, well nourished and + ill appearing; no acute distress Eyes: PERRL, conjunctivae normal, anicteric sclerae ENMT: external ear and nose normal, oropharynx normal Neck: trachea midline, no thyromegaly Respiratory: normal respiratory effort Auscultation: lungs clear to auscul tation bilaterally Cardiovascular: Rate/Rhythm: regular rate and regular rhythm Heart Sounds: no murmur Gastrointestinal (Abdomen): Inspection/Auscultation: abdomen normal to inspection and + abdomen distended (Minimally distended) Percussion/[place] on: + abdomen tender (Mildly tender) and abdomen soft Musculoskeletal: No acute arthritis in any joints Neurologic: moves all extremities; no focal motor deficits Lymphatic: no cervical or axillary lymphadenopathy Results & Data ([facility]) Vital Signs (Past 12 Hours) Vital Signs Temp Pulse Pulse Resp BP Pulse Ox 06/21/19 08:58 78 132/70 06/21/19 07:15 36.9 C 59 L 16 124/66 94 06/21/19 04:02 36.8 C 64 20 105/63 95 Laboratory Results Short CBC 06/21/19 Range/Units 04:57 WBC 9.72 (4.8-10.8) K/uL Hgb 13.3 L (14.0-18.0) g/dL Hct 39.8 L (42-52) % Plt Count 194 (130-400) K/uL BMP 06/21/19 04:57 Sodium 137 Potassium 3.6 Chloride 105 Carbon Dioxide 27 BUN 12 Creatinine 1.02 Glucose 121 H Calcium 7.8 L Cardiac Enzymes 06/20/19 Range/Units 11:49 Troponin I < 0.015 (0-0.045) ng/ml Liver Function 06/21/19 Range/Units 04:57 Total Bilirubin 1.1 H (0.2-1) mg/dl Direct Bilirubin 0.2 (0-0.2) mg/dl AST 48 H (15-37) U/L ALT 45 (12-78) U/L Alkaline Phosphatase 52 (45-117) U/L Albumin 2.8 L (3.4-5.0) gm/dl Medications Administered Current Inpatient Medications Hydrocodone Bitart/Acetaminophen ([place] 5/325) 1 tab PO Q4H PRN PRN Reason: Pain Stop: 07/04/19 15:50 Last Admin: 06/21/19 12:28 Dose: 1 tab Documented by: Hydrocodone Bitart/Acetaminophen ([place] 5/325) 2 tab PO Q4H PRN PRN Reason: Pain Stop: 07/04/19 15:50 Al Hydrox/Mg Hydrox/Simethicone (Maalox) 30 ml PO Q6H PRN PRN Reason: Dyspepsia Stop: 07/20/19 09:48 Aspirin (Ecotrin Ectab) 81 mg PO QAM [facility] Stop: 07/21/19 08:59 Last Admin: 06/21/19 08:56 Dose: 81 mg Documented by: Atorvastatin Calcium (Lipitor) 40 mg PO HS [facility] Stop: 07/20/19 20:59 Last Admin: 06/20/19 21:23 Dose: 40 mg Documented by: Dextrose (Dextrose 50%) 25 - 50 ml IV UD PRN; Protocol PRN Reason: Hypoglycemia Protocol Stop: 07/20/19 09:48 Glucagon (Glucagen) 1 mg SQ UD PRN; Protocol PRN Reason: Hypoglycemia Protocol Stop: 07/20/19 09:48 Glucose (Dex4 Glucose) 4 - 8 tabs PO UD PRN; Protocol PRN Reason: Hypoglycemia Protocol Stop: 07/20/19 09:48 Glucose (Glucose 40%) 15 - 30 gm PO UD PRN; Protocol PRN Reason: Hypoglycemia Protocol Stop: 07/20/19 09:48 Cefazolin Sodium (Ancef 2000mg) 2,000 mg in 15 mls @ 3.75 mls/min IV Q8H [facility] Stop: 06/21/19 15:59 Last Admin: 06/21/19 09:13 Dose: 3.75 mls/min Documented by: Insulin Aspart (Novolog Flexpen) 0 units SC ACHS [facility] Stop: 07/20/19 11:29 Last Admin: 06/21/19 09:01 Dose: 4 units Documented by: Insulin Glargine (Lantus Solostar Pen) 0 - 10 units SC BID [facility]; Protocol Stop: 07/20/19 09:20 Last Admin: 06/21/19 09:00 Dose: 5 units Documented by: Losartan Potassium (Cozaar) 25 mg PO HS [facility] Stop: 07/20/19 20:59 Last Admin: 06/20/19 21:23 Dose: 25 mg Documented by: Metoprolol Tartrate (Lopressor) 75 mg PO BID [facility] Stop: 07/20/19 10:14 Last Admin: 06/21/19 08:58 Dose: 75 mg Documented by: Miscellaneous (Carbohydrates For Hypoglycemia) 15 - 30 gm PO UD PRN PRN Reason: Hypoglycemia Protocol Stop: 07/20/19 09:48 Morphine Sulfate (Morphine Sulfate) 2 mg IV Q2H PRN PRN Reason: Pain Stop: 07/04/19 15:50 Morphine Sulfate (Morphine Sulfate) 4 mg IV Q2H PRN PRN Reason: Pain Stop: 07/04/19 15:50 Ondansetron HCl (Zofran) 4 mg IV Q6H PRN PRN Reason: Nausea Stop: 07/20/19 09:48
[2019-06-21 15:00] VITALS: BP 113/70; TEMP 98.8; O2SAT 95
--- NOTE | 2019-06-21 15:25 | Discharge Summary ---
Date of Service June 21, 2019 Admission HPI Per Admitting Provider This is a 68-year-old male who has significant past medical history of CAD with history of CABG x3 in 2012, T2DM uncontrolled, HTN, HLD, bifascicular block, glaucoma, known cholelithiasis who presents to ED secondary to abdominal pain x12 hours. He states approximately 3 to 4 days ago he overall did not feel well with approximately 12 to 24 hours of nausea and vomiting overnight. Since then he has had a somewhat decreased appetite. Last evening he ate a sub from [employer] in approximately 1 to 2 hours after ingesting he developed significant right upper quadrant abdominal pain. Pain was constant, described as a dull ache, radiated to the back, 10/10 at its worst, tried Tums without relief. Had similar symptoms in past with prior, "gallbladder attacks." He states in February he had met with general surgeon Dr. Cardona to discuss elective cholecystectomy but had not yet scheduled. Throughout the night his pain became more severe and was not improving. It was associated with significant nausea, sweats and chills. Due to worsening of pain he called EMS. He was instructed to take baby aspirin and was brought to ED. Currently his pain is slightly improved to a 5/10 and nausea has resolved. He continues to feel unwell. Denies any documented fever, lightheadedness, dizziness, syncope, chest pain, shortness with, palpitations, NEELY, cough, hemoptysis, emesis, diarrhea, acholic stools, melena, hematochezia. Denies any dysuria, increased urgency or frequency with urination. His last bowel movement was this morning and was normal for him. He has not had anything to eat or drink yet this morning but he did take a baby aspirin as instructed by EMS. Of significance he does have T2DM on metformin. He did not take his metformin this morning and he does not monitor his blood sugars. Of significance patient does have history of CAD with history of CABG x3. This was done in 2012 and he underwent a ARANA to LAD, vein graft to obtuse marginal and to distal RCA. In 12/2018 he did undergo nuclear stress test which was negative for inducible ischemia and resting echo revealed EF 60%, grade 1 diastolic dysfunction, mild AV sclerosis. He was last seen by cardiology on 05/31/[address] Romero. He denies any exertional chest pain or NEELY. He feels he would be able to walk a flight of stairs or on a flat surface for several minutes without getting any chest pain or shortness of breath. 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 In ED patient was hemodynamically stable and afebrile. Lab work revealed WBC 8.54, H&H 15.7 and 44.8, platelet 200, K3.7, BUN 17, creatinine 0.98, glucose 211, mag 1.7, T bili 1.1, LFTs WNL, troponin WNL, lipase WNL. Gallbladder ultrasound revealed Cholelithiasis and gallbladder sludge with borderline wall thickening, hepatic steatosis. Chest x-ray revealed Borderline cardiomegaly with questionable mild volume overload, mildly low lung volumes. EKG revealed normal sinus rhythm with rate of 60/min, known bifascicular block, T wave inversions now noted in V3 and V4. EKG was compared to EKG from 02/04/2017 and 08/01/2017. In ED he received IV fluid, IV Mefoxin, IV Zofran and 1 g IV magnesium. Admission Exam Per Admitting Provider Physical Exam: Constitutional: WD/WN, vitals as above, NAD, sitting up in bed, pleasant, conversing easily Head: Normocephalic, Atraumatic Eyes: PERRL, conjunctivae normal, anicteric sclerae ENMT: external ear and nose normal, oropharynx normal Neck: trachea midline, no thyromegaly normal visual inspection Respiratory: normal respiratory effort, lungs clear to auscultation, no wheeze, rales, rhonchi. Normal insp/exp effort, no accessory muscle use Cardiovascular: RRR, soft 1/6 GELY RUSB, no edema Vessels: no JVD or carotid bruit Chest: normal inspection of chest Abdomen: normal bowel sounds, soft, mild RUQ tenderness to palpation, no guarding, rigidity, no hepatosplenomegaly Musculoskeletal: no cyanosis or clubbing, extremities motor strength 5/5 Skin: no rashes, warm and dry normal turgor Neurologic: PERRL, EOMI, accommodation nl, no face palsy, no dysarthria CN's II-XI intact bilaterally and moves all extremities Psychiatric: A+Ox3, euthymic affect Lymphatic: no cervical or axillary lymphadenopathy : deferred Principal Diagnosis laparoscopic cholecystectomy Discharge Exam Constitutional well developed, well nourished and + ill appearing; no acute distress Eyes PERRL, conjunctivae normal, anicteric sclerae ENMT external ear and nose normal, oropharynx normal Neck trachea midline, no thyromegaly Respiratory normal respiratory effort Auscultation: lungs clear to auscultation bilaterally Cardiovascular Rate/Rhythm: regular rate and regular rhythm Heart Sounds: no murmur Gastrointestinal (Abdomen) Inspection/Auscultation: abdomen normal to inspection and + abdomen distended (Minimally distended) Percussion/Palpation: + abdomen tender (Mildly tender) and abdomen soft Neurologic moves all extremities; no focal motor deficits Lymphatic no cervical or axillary lymphadenopathy Discharge Data Allergies Allergy/AdvReac Type Severity Reaction Status Date / Time No Known Allergies Allergy Unverified 06/20/19 06:51 Consultations 06/20/19 07:49 Consult General Surgery Stat 06/20/19 08:09 ED Decision to Admit Stat Procedures Performed Operation Date: 06/20/19 10:05 Actual Procedures p Laparoscopic Cholecystectomy - Chan Mary, DO Ordered Studies 06/20/19 06:39 US gallbladder Stat Hospital Course (1) Acute cholecystitis: This is a 68-year-old male who has significant past medical history of CAD with history of CABG x3 in 2012, T2DM uncontrolled, HTN, HLD, bifascicular block, glaucoma, known cholelithiasis who presents to ED secondary to abdominal pain x12 hours. Pt with presentation of acute cholecystitis, mild T bili elevation otherwise LFT WNL Afebrile, no s/sx of SIRS/Sepsis per CMS guidelines Status post laparoscopic cholecystectomy, POD #1 Appreciate surgery input and recommendation Symptomatically much better following surgery Likely be discharged this afternoon-we will await for surgery recommendation Has been getting cefazolin since yesterday-we will ask surgery team if any antibiotic needs to be continued on discharge (2) CAD (coronary artery disease): Patient denies chest pain or shortness of breath History of CABG x3 in 2012 - ARANA to LAD, vein graft obtuse marginal and vein graft to distal RCA Recent nuclear stress test on 12/2018 which was negative for inducible ischemia EKG reviewed and compared to prior EKGs on 02/04/2017 and 08/01/2017, he does have known bifascicular block, new T wave inversion V3 and V4 (although V3 T wave inversion noted on ECG from 2017) We will repeat troponin at noon, if negative patient is medically cleared for surgery continue statin, losartan and coreg He did take ASA this morning but will hold until okay to resume by surgery No cardiac symptoms (3) Hypomagnesemia: Magnesium was 1.7 on admission Received 1g IV mag in ED (4) Diabetes: Uncontrolled, last A1c 9.5 on 11/2018 A1c in a.m.-7.8 Hold metformin Lantus/NovoLog per protocol (5) Hypertension: blood pressure elevated, likely in setting of pain continue coreg, losartan monitor (6) Dyslipidemia: continue statin (7) DVT prophylaxis: SCD/TEDS for now given likely impending surgery Disposition: admit to med/surg Follow up: PCP Dr. Joseph upon discharge Likely be discharged this afternoon Total Time Total Time Spent Total Time Spent (In Minutes): 35 minutes Total Time Includes: Examination of the Patient, Discharge Planning, Medication Reconciliation and Communication With Other Providers Discharge Plan Discharge Items Patient Disposition: Home - Self-Care Reason For Visit: ABDOMINAL PAIN Discharge Diagnosis: laparoscopic cholecystectomy Condition on Discharge: Good Activity: Per Instructions section Lifting: No more than 10 pounds Bathing Comment: may shower, no soaking in tubs Driving/Machine Use: do not resume driving while taking narcotics for pain Non-emergency contact: Primary Care Provider Call non-emergency contact if: you have any medication questions, your symptoms worsen, your pain is not controlled, your pain is unusual for you, your pain is concerning for you, you have a fever, your temperature is above 101.5, your wound has increased redness, your wound has increased drainage and your wound pain has increased Follow-up/Referrals: Chan Mary DO [Surgeon] - (Please call to schedule follow up in clinic within 2 weeks) Colton Joseph MD [Primary Care Provider] - 06/24/19 10:45 am Diet: Regular Addtl Attending Provider Instructions: call [phone] with any questions or concerns. Pending Studies at Discharge: Yes Studies:: path report Stand-Alone Forms: My [employer], Smoking Cessation Medications and DC Order Prescriptions: New hydrocodone-acetaminophen [[place]] 5-325 mg tablet 1 - 2 tab PO Q4H PRN (Reason: pain, initial therapy, max 6 tabs daily) Qty: 15 RF: 0 Continued atorvastatin 40 mg Tablet 40 mg PO HS RF: 0 aspirin 81 mg Tablet,Delayed Release (Dr/Ec) 81 mg PO QDD RF: 0 metformin 1,000 mg tablet 1,000 mg PO BIDM RF: 0 losartan 25 mg Tablet 25 mg PO HS RF: 0 metoprolol tartrate 50 mg tablet 75 mg PO BID RF: 0 Discharge Orders: Discharge Order (Routine); Ordered 06/21/19 Ordered By: Ankit Jenkins/Other Patient Handouts: Diabetes Type 2 Managing, Diabetes Healthy Meals, Diabetes Meal Planning Admission Data Admit Date/Time: 06/20/19 08:31 Attending Provider: Ankit Easley Admit Provider: Ankit Easley Primary Care Provider: Colton Joseph Other Providers: Chan Mary ; Ankit Easley
[2019-06-21 16:20] VITALS: PULSE 78
== END 2019-06-21 17:10 | disposition home or self-care (01) ==
LOC: 3W 06:15 → ED 06:15 → 3W 09:16